=== PATIENT | male | born 1935 | race African-American/Black ===

== ENCOUNTER 2023-08-27 08:33 | Emergency (ER) | payer MEDICARE, BC ==
[2023-08-27 08:59] VITALS: TEMP 97
--- NOTE | 2023-08-27 09:16 | ERPHSYRPT ---
- History of Present Illness Time Seen by Provider: 08/27/23 08:40 Source: patient Exam Limitations: clinical condition Patient Subjective Stated Complaint: PT HERE FOR SEIZURE X3 AT [facility], PT HAS NOT HAD A SEIZURE FOR A YEAR Triage Nursing Assessment: PT ARRIVED PER AMBULANCE, ALERT, BUT CONFUSED, HE IS NORMALLY MORE ALERT PER DAUGHTER. PT REFUSES IV AT THIS TIME, DAUGHTER NOW AT BEDSIDE. MOVES ALL EXT WELL. Timing/Duration: today Severity: mild Associated Symptoms: denies symptoms Allergies/Adverse Reactions: No Known Drug Allergies Allergy (Unverified 08/27/23 10:41) Hx Influenza Vaccination/Date Given: Yes Hx Pneumococcal Vaccination/Date Given: Yes Immunizations Up to Date: Yes Travel Risk - International Travel Have you traveled outside of the country in past 3 weeks: No - Emerging Infectious Disease Are you exhibiting symptoms associated with any current EIDs: No - Review of Systems Eyes: No Symptoms Ears, Nose, & Throat: No Symptoms Respiratory: No Symptoms Cardiac: No Symptoms Abdominal/Gastrointestinal: No Symptoms Genitourinary Symptoms: No Symptoms Musculoskeletal: No Symptoms Neurological: Other (seizures) Endocrine: No Symptoms Hematologic/Lymphatic: No Symptoms Immunological/Allergic: No Symptoms - Past Medical History Pertinent Past Medical History: Yes Neurological History: Seizures Cardiac History: High Cholesterol, Hypertension - Past Surgical History Past Surgical History: (UNSURE) - Social History Smoking Status: Never smoker Exposure to second hand smoke: No Drug Use: none - Social Determinants of Health Will the patient participate in the screening: Unable to obtain - Nursing Vital Signs Nursing Vital Signs: Initial Vital Signs Temperature 97.0 F 08/27/23 08:56 Pulse Rate 65 08/27/23 08:56 Respiratory Rate 16 08/27/23 08:56 Blood Pressure 180/97 08/27/23 08:56 O2 Sat by Pulse Oximetry 97 08/27/23 08:56 Pain Scale Pain Intensity 0 - Physical Exam General Appearance: no apparent distress, other (patient appears to be post ictal ) Eye Exam: PERRL/EOMI Ears, Nose, Throat Exam: normal ENT inspection Neck Exam: normal inspection Respiratory Exam: normal breath sounds Cardiovascular Exam: regular rate/rhythm Gastrointestinal/Abdomen Exam: soft Neurologic Exam: other (patient is not cooperative at this time with exam ) Skin Exam: normal color SpO2: 97 Ordered Tests: Active Orders 24 hr Category Date Time Status Saline Lock ROUTINE Care 08/27/23 09:13 Completed CBC Stat Lab 08/27/23 09:20 Completed CMP Stat Lab 08/27/23 09:20 Completed UA W/RFX UR CULTURE Stat Lab 08/27/23 09:31 Completed Medication Summary Discontinued Medications Generic Name Dose Route Start Last Admin Trade Name Freq PRN Reason Stop Dose Admin Atropine Sulfate 0.5 mg 08/27/23 10:35 08/27/23 10:43 Atropine Sulfate 1 Mg/10 Ml Abboject IV 08/27/23 10:36 0.5 mg ONCE ONE Administration Atropine Sulfate Confirm 08/27/23 10:36 Atropine Sulfate 1 Mg/10 Ml Abboject Administered 08/27/23 10:37 Dose 1 mg .ROUTE .STK-MED ONE Fosphenytoin Sodium 1,500 mg/ 130 mls @ 250 mls/hr 08/27/23 10:43 08/27/23 11:00 Sodium Chloride IV 08/27/23 11:14 250 mls/hr STAT ONE Administration Lorazepam 1 mg 08/27/23 09:45 Lorazepam 2 Mg/1 Ml 2 Mg Vial IV 09/26/23 09:44 PRN PRN CIWA SCORE Lorazepam 1 mg 08/27/23 09:49 08/27/23 09:51 Lorazepam 2 Mg/1 Ml 2 Mg Vial IV 08/27/23 09:50 1 mg STAT ONE Administration Lorazepam Confirm 08/27/23 09:44 Lorazepam 2 Mg/1 Ml 2 Mg Vial Administered 08/27/23 09:45 Dose 2 mg .ROUTE .STK-MED ONE Lab/Rad Data: Laboratory Result Diagrams 08/27/23 09:20 08/27/23 09:20 Laboratory Results 08/27/23 08/27/23 08/27/23 Range/Units 09:31 09:20 09:20 WBC (4.23-9.07) x10^3/uL RBC (4.63-6.08) x10^6/uL Hgb (13.7-17.5) g/dL Hct (40.1-51.0) % MCV (79.0-92.2) fL MCH (25.7-32.2) pg MCHC (32.3-36.5) g/dL RDW (11.6-14.4) % Plt Count (163-337) x10^3/uL MPV (9.4-12.4) fL Sodium 142 (135-145) mmol/L Potassium 4.0 (3.5-5.1) mmol/L Chloride 106 (98-107) mmol/L Carbon Dioxide 25 (22-30) mmol/L Anion Gap 14.1 (5-15) MEQ/L BUN 31 H (9-20) mg/dL Creatinine 1.95 H (0.66-1.25) mg/dL Estimated GFR 32.3 ML/MIN Glucose 139 H (74-106) mg/dL Calcium 10.5 H (8.4-10.2) mg/dL Total Bilirubin 0.50 (0.2-1.3) mg/dL AST 26 (17-59) U/L ALT 14 (0-50) U/L Alkaline Phosphatase 222 H (38-126) U/L Serum Total Protein 8.1 (6.3-8.2) g/dL Albumin 4.3 (3.5-5.0) g/dL Urine Color Yellow (Yellow) Urine Appearance Clear (Clear) Urine pH 6.5 (4.6-8.0) Ur Specific [place] 1.010 (1.005-1.030) Urine Protein 100 A (Negative) Urine Glucose (UA) Negative (Negative) mg/dL Urine Ketones Negative (Negative) Urine Blood Trace (Negative) Urine Nitrite Negative (Negative) Urine Bilirubin Negative (Negative) Urine Urobilinogen 0.2 (0.2) mg/dL Ur Leukocyte Esterase Negative (Negative) U Hyaline Cast (Auto) NONE SEEN (0-2) /LPF Urine Microscopic RBC 0-2 (0-5) /HPF Urine Microscopic WBC 0-2 (0-5) /HPF Ur Epithelial Cells None Seen (None Seen) /HPF Urine Bacteria None Seen (None Seen) /HPF Urine Culture Reflexed NO (NO) Phenytoin 3.3 L (10-20) ug/mL 08/27/23 Range/Units 09:20 WBC 4.9 (4.23-9.07) x10^3/uL RBC 3.73 L (4.63-6.08) x10^6/uL Hgb 12.3 L (13.7-17.5) g/dL Hct 36.7 L (40.1-51.0) % MCV 98.4 H (79.0-92.2) fL MCH 33.0 H (25.7-32.2) pg MCHC 33.5 (32.3-36.5) g/dL RDW 12.3 (11.6-14.4) % Plt Count 178 (163-337) x10^3/uL MPV 10.0 (9.4-12.4) fL Sodium (135-145) mmol/L Potassium (3.5-5.1) mmol/L Chloride (98-107) mmol/L Carbon Dioxide (22-30) mmol/L Anion Gap (5-15) MEQ/L BUN (9-20) mg/dL Creatinine (0.66-1.25) mg/dL Estimated GFR ML/MIN Glucose (74-106) mg/dL Calcium (8.4-10.2) mg/dL Total Bilirubin (0.2-1.3) mg/dL AST (17-59) U/L ALT (0-50) U/L Alkaline Phosphatase (38-126) U/L Serum Total Protein (6.3-8.2) g/dL Albumin (3.5-5.0) g/dL Urine Color (Yellow) Urine Appearance (Clear) Urine pH (4.6-8.0) Ur Specific [place] (1.005-1.030) Urine Protein (Negative) Urine Glucose (UA) (Negative) mg/dL Urine Ketones (Negative) Urine Blood (Negative) Urine Nitrite (Negative) Urine Bilirubin (Negative) Urine Urobilinogen (0.2) mg/dL Ur Leukocyte Esterase (Negative) U Hyaline Cast (Auto) (0-2) /LPF Urine Microscopic RBC (0-5) /HPF Urine Microscopic WBC (0-5) /HPF Ur Epithelial Cells (None Seen) /HPF Urine Bacteria (None Seen) /HPF Urine Culture Reflexed (NO) Phenytoin (10-20) ug/mL - Progress Progress Note: patient was seen and evaluated initially he refused labs and head ct . upon the arrival of his family he was cooperative and then agreed to lab and other eval uation . his daugther requested some meds to calm him down. 1 mg of ativan was ordered and then the patient developed bradycardia. I spoke to the family and informed them of the need for transfer to [facility] or [facility] . they are agreeable at this time . Patients DNR status was confirmed . He will continue to be monitored and treated in the er and the patient will be treated accordingly 08/27/23 10:27 08/27/23 10:52 patient was monitored here in the department . his bradycardia was treated with atropine and his pulse improved. I spoke to the ed physician at [facility] Dr Rondon he was updated with the patients lab results and current vitals and treatments he will accept the patient as a transfer. patient and his family were updated and they have no further questions at this time. patients vitals are stable at this time Discussed with Dr.: Other (Dr rondon ) Will see patient in: ED Medical Desision Making - Discussion of managment Reviewed:: Need for additional workup Agreed on:: Treatment plan (decision was made to transfer the patient ) - Departure Departure Disposition: Transfer Clinical Impression: Seizure, Bradycardia, Renal insufficiency, mild Condition: Stable Critical Care Time: Yes Critical Care Time(excluding separately billable procedures): Critical 30-74 mins Referrals: KARTIK LADD DO [Primary Care Provider] - Follow up/PCP as directed
[2023-08-27 09:27] LABS: Hematocrit 36.7 % (40.1-51.0); Hemoglobin 12.3 g/dL (13.7-17.5); Mean Cell Volume 98.4 fL (79.0-92.2); Mean Corpuscular Hgb Concent. 33.5 g/dL (32.3-36.5); Platelet Count 178 x10^3/uL (163-337); Red Blood Count 3.73 x10^6/uL (4.63-6.08); Red Cell Distribution Width 12.3 % (11.6-14.4); White Blood Count 4.9 x10^3/uL (4.23-9.07)
[2023-08-27] MEDS ORDERED: Ativan 2 MG/1 ML VIAL ONE (09:44)
[2023-08-27] MEDS ORDERED: Ativan 2 MG/1 ML VIAL IV PRN (09:45)
[2023-08-27 09:46] LABS: ALBUMIN 4.3 g/dL (3.5-5.0); ANION GAP 14.1 MEQ/L (5-15); BILIRUBIN,TOTAL 0.5 mg/dL (0.2-1.3); Calcium 10.5 mg/dL (8.4-10.2); Creatinine 1 1.95 mg/dL (0.66-1.25); EST GLOMERULAR FILTRATION RATE 32.3 ML/MIN; Total Protein 8.1 g/dL (6.3-8.2)
[2023-08-27] MEDS: Ativan 2 MG/1 ML VIAL IV ONE (09:51)
[2023-08-27 09:54] LABS: Appearance Clear (Clear); Bacteria None Seen /HPF (None Seen); Bilirubin Negative (Negative); Blood Trace (Negative); Epithelial Cells None Seen /HPF (None Seen); Glucose, Urine Negative (Negative); Hyaline Casts NONE SEEN /LPF (0-2); Ketones Negative (Negative); Leukocyte Esterase Negative (Negative); Nitrite Negative (Negative); Ph 6.5 (4.6-8.0); Protein,Urine Dip 100 (Negative); RBC 0-2 /HPF (0-5); Urobilinogen 0.2 mg/dL (0.2); WBC 0-2 /HPF (0-5)
[2023-08-27 09:57] LABS: ADD URINE CULTURE? NO (NO)
[2023-08-27] MEDS ORDERED: ATROPINE SULFATE 1MG SYR ABBOJECT ONE (10:36)
[2023-08-27] MEDS: ATROPINE SULFATE 1MG SYR ABBOJECT IV ONE (10:43)
[2023-08-27] MEDS: SODIUM CHLORIDE 0.9% IV ONE (11:00)
[2023-08-27] MEDS: CEREBYX IV ONE (11:00)
[2023-08-27 11:19] VITALS: BP 149/77
[2023-08-27 11:26] VITALS: PULSE 60; RESP 16
[2023-08-27 19:17] VITALS: O2SAT 97
== END 2023-08-27 11:40 | disposition short-term general hospital (02) ==
LOC: ED 08:33
DX: G40.909 Epilepsy, unspecified, not intractable, without status epilepticus (principal); R00.1 Bradycardia, unspecified; N28.9 Disorder of kidney and ureter, unspecified; E78.5 Hyperlipidemia, unspecified; I10 Essential (primary) hypertension
CPT/HCPCS: 36000; 36415; 80053; 80185; 81001; 85027; 93005; 96365; 96374; 96375; 99285; 99291; J0461; J2060; Q2009

== ENCOUNTER 2023-09-11 10:13 | Observation (INO) | payer MEDICARE, BC ==
[2023-09-11] MEDS: Versed 2 MG/2 ML Injection IV ONE (10:51)
[2023-09-11 11:05] LABS: Absolute Neutrophil Ct (ANC) 2.89 x10^3/uL (1.78-5.38); BASOPHIL % 0.6 % (0.2-1.2); Basophil (Absolute #) 0.03 x10^3/uL (0.01-0.08); Eosinophil % 5.5 % (0.8-7.0); Hematocrit 38.3 % (40.1-51.0); Hemoglobin 12.4 g/dL (13.7-17.5); IMMATURE GRAN # 0.03 x10^3u/L (0.001-0.031); IMMATURE GRAN % 0.6 % (0.001-0.429); Lymphocyte (Absolute #) 1.52 x10^3/uL (1.32-3.57); Lymphocytes % 27.9 % (21.8-53.1); Mean Cell Volume 100.5 fL (79.0-92.2); Mean Corpuscular Hemoglobin 32.5 pg (25.7-32.2); Mean Corpuscular Hgb Concent. 32.4 g/dL (32.3-36.5); Mean Platelet Volume 10.4 fL (9.4-12.4); Monocyte (Absolute #) 0.68 x10^3/uL (0.30-0.82); Monocytes % 12.5 % (5.3-12.2); Neutrophil % 52.9 % (34.0-67.9); Platelet Count 184 x10^3/uL (163-337); Red Blood Count 3.81 x10^6/uL (4.63-6.08); Red Cell Distribution Width 12.3 % (11.6-14.4); White Blood Count 5.5 x10^3/uL (4.23-9.07)
[2023-09-11 11:22] LABS: ISTAT CREA 3.5 mg/dL (0.6-1.3); ISTAT K 3.9 mmol/L (3.5-4.9); ISTAT iCA 1.24 mmol/L (1.12-1.32)
[2023-09-11] MEDS: SODIUM CHLORIDE 0.9% IV ONE (11:40)
[2023-09-11] MEDS: DILANTIN IV ONE (11:40)
--- NOTE | 2023-09-11 11:46 | XRAY ---
Indication: Altered mental status. Seizure. Multiple contiguous axial images obtained through the head without contrast. Comparison: None Age-appropriate global atrophy, mild periventricular degenerative micro-ischemia bilaterally, small focus old infarct left frontal lobe, and tiny focus old infarct right cerebellum. No acute intracranial hemorrhage, abnormal extra-axial fluid collection, or mass effect. Fourth ventricle is midline without hydrocephalus. Bony calvarium intact. Visualized paranasal sinuses and mastoid air cells are clear. 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
--- NOTE | 2023-09-11 11:48 | XRAY ---
Indication: Altered mental status. Short of breath. Cough. Comparison: None Portable chest demonstrates mild left lung base subsegmental atelectasis/scarring. Remaining heart and lungs unremarkable. Bony thorax intact with osteopenia and mild degenerative changes.
[2023-09-11] MEDS ORDERED: Sodium Chloride 0.9% 500 ML 500 ML IV ONE (11:57)
[2023-09-11] MEDS: Sodium Chloride 0.9% 500 ML 500 ML IV ONE (12:01)
[2023-09-11] MEDS: Sodium Chloride 0.9% 1000 ML 1,000 ML IV SCH (13:12)
--- NOTE | 2023-09-11 13:17 | ERPHSYRPT ---
- History of Present Illness Time Seen by Provider: 09/11/23 10:15 Source: EMS, long term records Exam Limitations: clinical condition Patient Subjective Stated Complaint: C/O Seizures. Patient resides at a long- term care facility locally ([facility]). EMS called to residence for patient having active seizures today. Patient with a known history of seizures. EMS enroute to [facility] when patient began having a seizure in the ambulance and EMS unable to obtain IV access so they diverted to this ED. Triage Nursing Assessment: Patient arrived by ambulance. Patient given versed enroute and is not awake at this time. No SOB. Airway patent. No active seizing at this time. Skin tone normal. Seizure precautions initiated. Physician History: 88-year-old male with multiple medical problems including dementia, seizure disorder, diabetes mellitus, hypertension resident of long term is sent in ER with multiple seizures today with the last 1 and route to the hospital. Patient received intranasal Versed and improved. Patient is on phenytoin 100 mg. No fall or trauma reported although patient did have a fall couple of days ago and was evaluated at [facility] ER. Seizures are described as generalized stiffening. Patient is snoring on presentation. No recent fever chills or cough reported. No vomiting or diarrhea. Allergies/Adverse Reactions: No Known Drug Allergies Allergy (Unverified 08/27/23 10:41) Home Medications: Cholecalciferol (Vitamin D3) [Vitamin D] 400 unit PO DAILY 09/11/23 [History] Clopidogrel Bisulfate [PLAVIX Tablet] 75 mg PO DAILY 09/11/23 [History] Cyanocobalamin 100 Mcg [Vitamin B-12 100 Mcg] 1,000 mcg IM DIRECTIONS UNKNOWN 09/11/23 [History] Donepezil HCl [Aricept] 5 mg PO BID 09/11/23 [History] Ferrous Sulfate 325 mg [Feosol 325 mg] 325 mg PO DAILY 09/11/23 [History] Finasteride 5 mg [Proscar 5 MG] 5 mg PO DAILY 09/11/23 [History] Gabapentin [Neurontin] 600 mg PO BID 09/11/23 [History] Insulin Glargine [Lantus Insulin] 20 unit SQ HS 09/11/23 [History] Insulin Lispro [Humalog] See Protocol SQ ACHS 09/11/23 [History] Isosorbide Mononitrate 30 mg [Imdur 30 MG] 30 mg PO BID 09/11/23 [History] Melatonin/Pyridoxine [Melatonin 5 mg Tablet] 10 mg PO HS 09/11/23 [History] Pantoprazole Sodium 40 mg PO DAILY 09/11/23 [History] Phenytoin Sod Extended 100 mg* [Dilantin 100 MG] 100 mg PO BID 09/11/23 [History] Risperidone 1 mg [Risperdal 1 MG] 1 mg PO BID 09/11/23 [History] Terazosin HCl 5 mg PO HS 09/11/23 [History] gemfibroziL [Gemfibrozil] 600 mg PO BID 09/11/23 [History] Hx Influenza Vaccination/Date Given: Yes Hx Pneumococcal Vaccination/Date Given: Yes Travel Risk - International Travel Have you traveled outside of the country in past 3 weeks: No - Emerging Infectious Disease Are you exhibiting symptoms associated with any current EIDs: No - Review of Systems All Other Systems: Unable due to condition - Past Medical History Pertinent Past Medical History: Yes Neurological History: Dementia, Epilepsy, Seizures Cardiac History: High Cholesterol, Hypertension, Other Endocrine Medical History: Diabetes Type II History: Renal Disease Male Reproductive Disorders: Prostate Problems Other Medical History: ventricular tachycardia, CKD, hyperlipidemia, weakness, cognitive communication deficit, right wrist ganglion, BPH, bradycardia, repeated falls - Past Surgical History Past Surgical History: (UNSURE) Other Surgical History: Patient unable to give a surgical history at this time and surgical history not send with transfer paperwork from the long term. - Social History Smoking Status: Unknown if ever smoked Exposure to second hand smoke: No Drug Use: none - Social Determinants of Health Will the patient participate in the screening: Unable to obtain - Nursing Vital Signs Nursing Vital Signs: Initial Vital Signs Temperature 96.9 F 09/11/23 10:14 Pulse Rate 60 09/11/23 10:14 Respiratory Rate 15 09/11/23 10:14 Blood Pressure 100/60 09/11/23 10:14 O2 Sat by Pulse Oximetry 97 09/11/23 10:14 Pain Scale Pain Intensity 0 - Physical Exam General Appearance: other (Sleepy) Eye Exam: eyes nml inspection Ears, Nose, Throat Exam: normal ENT inspection, pharynx normal Neck Exam: normal inspection, non-tender, supple Respiratory Exam: normal breath sounds, lungs clear Cardiovascular Exam: normal heart sounds, bradycardia Gastrointestinal/Abdomen Exam: soft, normal bowel sounds, No tenderness Extremity Exam: normal inspection, pelvis stable Neurologic Exam: No motor deficits Skin Exam: normal color SpO2 Interpretation: O2 applied SpO2: 100 O2 Delivery: Nasal Cannula - Course EKG Interpreted by Me: RATE (62), Sinus Rhythm, NORMAL AXIS, prolonged QT interval, Other (Nonspecific T wave changes) Ordered Tests: Active Orders 24 hr Category Date Time Status Territory Supervisor STAT Care 09/11/23 10:36 Active EKG-ER Only STAT Care 09/11/23 10:31 Active IV Insertion STAT Care 09/11/23 10:31 Active NPO (ED) STAT Care 09/11/23 10:31 Active Oxygen-ED Only Nasal Cannula 2 lpm Care 09/11/23 10:31 Active POCT Glucose Check STAT Care 09/11/23 10:31 Active CHEST 1 VIEW (PORTABLE) Stat Exams 09/11/23 10:31 Completed HEAD WITHOUT CONTRAST [CT] Stat Exams 09/11/23 10:33 Completed CBC W DIFF Stat Lab 09/11/23 10:56 Completed Lactic Acid Stat Lab 09/11/23 10:26 Completed UA W/RFX UR CULTURE Stat Lab 09/11/23 10:26 Ordered Transfer Order Routine Transfer 09/11/23 Ordered Medication Summary Generic Name Dose Route Start Last Admin Trade Name Freq PRN Reason Stop Dose Admin Sodium Chloride 1,000 mls @ 125 mls/hr 09/11/23 12:00 Sodium Chloride 0.9% 1000 Ml IV 10/11/23 11:59 .Q8H YESENIA Discontinued Medications Generic Name Dose Route Start Last Admin Trade Name Freq PRN Reason Stop Dose Admin Phenytoin Sodium 1,000 mg/ 120 mls @ 240 mls/hr 09/11/23 10:31 09/11/23 11:40 Sodium Chloride IV 09/11/23 11:00 240 mls/hr STAT ONE Administration Sodium Chloride 500 mls @ 500 mls/hr 09/11/23 11:50 09/11/23 13:02 Sodium Chloride 0.9% 500 Ml IV 09/11/23 12:49 Infused .Q1H ONE Infusion Sodium Chloride Confirm 09/11/23 11:57 Sodium Chloride 0.9% 500 Ml Administered 09/11/23 11:58 Dose 500 mls @ ud IV .STK-MED ONE Midazolam HCl 2 mg 09/11/23 10:17 09/11/23 10:51 Midazolam Hcl 2 Mg/2 Ml Vial IV 09/11/23 10:18 Not Given 1XONLY ONE Lab/Rad Data: Laboratory Result Diagrams 09/11/23 10:56 09/11/23 10:56 Laboratory Results 09/11/23 09/11/23 09/11/23 Range/Units 10:56 10:56 10:26 WBC 5.5 (4.23-9.07) x10^3/uL RBC 3.81 L (4.63-6.08) x10^6/uL Hgb 12.4 L (13.7-17.5) g/dL Hct 38.3 L (40.1-51.0) % MCV 100.5 H (79.0-92.2) fL MCH 32.5 H (25.7-32.2) pg MCHC 32.4 (32.3-36.5) g/dL RDW 12.3 (11.6-14.4) % Plt Count 184 (163-337) x10^3/uL MPV 10.4 (9.4-12.4) fL Gran % 52.9 (34.0-67.9) % Immature Gran % (Auto) 0.6 H (0.001-0.429) % Nucleat RBC Rel Count 0.0 (0.00-0.2) % Eos # (Auto) 0.30 (0.04-0.54) x10^3/uL Immature Gran # (Auto) 0.03 (0.001-0.031) x10^3u/L Absolute Lymphs (auto) 1.52 (1.32-3.57) x10^3/uL Absolute Monos (auto) 0.68 (0.30-0.82) x10^3/uL Absolute Nucleated RBC 0.00 (0.00-0.012) x10^3u/L Lymphocytes % 27.9 (21.8-53.1) % Monocytes % 12.5 H (5.3-12.2) % Eosinophils % 5.5 (0.8-7.0) % Basophils % 0.6 (0.2-1.2) % Absolute Granulocytes 2.89 (1.78-5.38) x10^3/uL Basophils # 0.03 (0.01-0.08) x10^3/uL Sodium Direct 143 (138-146) mmol/L Potassium 3.9 (3.5-4.9) mmol/L Chloride 109 (98-109) mmol/L Carbon Dioxide 23 L (24-29) mmol/L Venous BUN 63 H (8-26) mg/dL Creatinine 3.5 H (0.6-1.3) mg/dL Glucose 167 H (70-105) mg/dL Lactic Acid 2.1 H (0.4-2.0) Ionized Calcium 1.24 (1.12-1.32) mmol/L - Progress Progress: improved Progress Note: 09/11/23 13:17 88-year-old with history of seizures is evaluated for multiple seizure prior to arrival with improvement after intranasal Versed. Patient is postictal on presentation, his oxygen was dropping in low 90s, placed on 2 L oxygen. He is given IV phenytoin and workup showed CT head without contrast with no acute intracranial findings but old changes. Chest x-ray negative. EKG is normal sinus rhythm with no acute ST elevations. Has normal white count, chemistries showed normal potassium and sodium but a creatinine of 3.5 with a baseline few days ago around 1.9. He is started on fluids. Patient has bradycardia while he is in sleep in 40s and 50s and also has history of getting severely bradycardic after receiving benzos. I have not given him any benzos in here. He had a brief episode of seizure which improved without medications. He does not have any further seizures after receiving phenytoin loading dose in here. Patient has history of seizure disorder and I have discussed with about keeping patient in here and also that we do not have neurology services in-house and she does not want to take him to [place] and would like to keep her in here. I have discussed with Dr. Somers hospitalist on-call, reviewed history, workup and agreed with admission. CODE STATUS is DNR. Discussed with Dr.: Other (Dr. Somers) Counseled pt/family regarding: lab results, diagnosis, rad results Medical Desision Making - Independent Historian Additional History obtained from: Spouse, Custodial nurse, Evaluation Specialist/EMT - External Record(s) Reviewed Records reviewed as a part of evaluation & management: EMS - Discussion of managment Care discussed with:: hospitalist Reviewed:: Test results Agreed on:: Treatment plan, place in obs Will see patient: in hospital - Diagnostic Testing Diagnostic test were ordered, analyzed, and reviewed by me: Yes Radiological Interpretation: Reviewed by me - Risk of complications The pt has a mod risk of morbidity or mortality based on: Need for prescription drug management The pt has a high risk of morbidity or mortality based on: Decision regarding hospitilization or escalation of hosp level of care - Departure Departure Disposition: Observation Clinical Impression: Recurrent seizures, Acute on chronic renal failure, Bradycardia Condition: Fair Critical Care Time: No Referrals: KARTIK LADD DO [Primary Care Provider] - Follow up/PCP as directed
[2023-09-11] MEDS ORDERED: Ativan 2 MG/1 ML VIAL IVIM PRN (14:30)
--- NOTE | 2023-09-11 14:32 | PCM.HP ---
<SANDHYA SHOEMAKER - Last Filed: 09/11/23 16:51> History of Present Illness - Chief Complaint Chief Complaint: Recurrent seizures Date: 09/11/23 History of Present Illness: is a 88 year old malepmhx of dementia, seizures, stroke, HTN, DM, HTN, CKD, BPH, and HLD who presented to ED via EMS from the [facility] after having multiple witnessed seizures. Recent ER visit 08/27/23 for multiple seizures after not having a seizure for two years. Patient was transferred at that time to [facility]. ER documentation reviewed, family was not wishing to transfer patient due to multiple admissions to [place]. Spoke with daughter Jennifer to obtain history as patient became belligerent once on the [facility] floor and unable to provide. Per daughter patient has been having multiple seizures and falls at the nursing facility resulting in multiple hospitalizations at both [facility] and [facility] over the past several weeks. Patient has a baseline of dementia but normally does not have behavioral issues. Staff unable to obtain IV access or provide medical treatment without restraining patient. Discussed lab findings and need for multi-specialty consults as well as one-on-one sitter which is not available at [facility]. Family is now agreeable for transfer - preferably [place] if able. In ED, patient bradycardic with HR in the 40s-50s and hypotensive at 100/60. EKG NS with no ST elevation/deviations. CT head non-acute with chronic findings with multifocal old infarcts. CXR with no acute findings. Labs remarkable for macrocytic, hyperchromic anemia with hgb at 12.4, creat at 3.5 (unknown baseline, last reading on 08/27/23 1.95), and lactic acid at 2.1. Patient was given versed, phenytoin, and 500ml fluid bolus. - Review of Systems All Other Systems: Unable due to condition Medications & Allergies Home Medications: Home Medication List Cholecalciferol (Vitamin D3) [Vitamin D] 400 unit PO DAILY 09/11/23 [History Confirmed 09/11/23] Clopidogrel Bisulfate [PLAVIX Tablet] 75 mg PO DAILY 09/11/23 [History Confirmed 09/11/23] Cyanocobalamin 100 Mcg [Vitamin B-12 100 Mcg] 1,000 mcg IM UD 09/11/23 [History Confirmed 09/11/23] Donepezil HCl [Aricept] 5 mg PO BID 09/11/23 [History Confirmed 09/11/23] Ferrous Sulfate 325 mg [Feosol 325 mg] 325 mg PO DAILY 09/11/23 [History Confirmed 09/11/23] Finasteride 5 mg [Proscar 5 MG] 5 mg PO DAILY 09/11/23 [History Confirmed 09/11/23] Gabapentin [Neurontin] 600 mg PO BID 09/11/23 [History Confirmed 09/11/23] Insulin Glargine [Lantus Insulin] 20 unit SQ HS 09/11/23 [History Confirmed 09/11/23] Insulin Lispro [Humalog] See Protocol SQ ACHS 09/11/23 [History Confirmed 09/11/23] Isosorbide Mononitrate 30 mg [Imdur 30 MG] 30 mg PO BID 09/11/23 [History Confirmed 09/11/23] Melatonin/Pyridoxine [Melatonin 5 mg Tablet] 10 mg PO HS 09/11/23 [History Confirmed 09/11/23] Pantoprazole Sodium 40 mg PO DAILY 09/11/23 [History Confirmed 09/11/23] Phenytoin Sod Extended 100 mg* [Dilantin 100 MG] 100 mg PO BID 09/11/23 [History Confirmed 09/11/23] Risperidone 1 mg [Risperdal 1 MG] 1 mg PO BID 09/11/23 [History Confirmed 09/11/23] Terazosin HCl 5 mg PO HS 09/11/23 [History Confirmed 09/11/23] gemfibroziL [Gemfibrozil] 600 mg PO BID 09/11/23 [History Confirmed 09/11/23] Allergies/Adverse Reactions: Allergies Allergy/AdvReac Type Severity Reaction Status Date / Time No Known Drug Allergies Allergy Verified 09/11/23 17:09 - Past Medical History Past Medical History: Yes Neurological History: Dementia, Epilepsy, Seizures Cardiac History: High Cholesterol, Hypertension, Other Endocrine Medical History: Diabetes Type II History: Renal Disease Male Reproductive Disorders: Prostate Problems Comment: ventricular tachycardia, CKD, hyperlipidemia, weakness, cognitive communication deficit, right wrist ganglion, BPH, bradycardia, repeated falls - Past Surgical History Past Surgical History: (UNSURE) Other Surgical History: Patient unable to give a surgical history at this time and surgical history not send with transfer paperwork from the halfway. - Social History Smoking Status: Unknown if ever smoked Exposure to second hand smoke: No Drug Use: none - Social Determinants of Health Will the patient participate in the screening: Unable to obtain - Physical Exam Vital Signs: Vital Signs - 24 hr Temp Pulse Resp BP BP Pulse Ox 09/11/23 13:46 62 16 129/63 09/11/23 13:32 59 L 12 135/54 09/11/23 13:21 100 09/11/23 13:17 57 L 18 148/67 09/11/23 13:01 61 19 129/55 09/11/23 12:46 55 L 15 121/55 09/11/23 12:30 56 L 20 95/50 97 09/11/23 12:16 47 L 3 L 99/62 96 09/11/23 12:01 65 18 145/80 96 09/11/23 11:46 69 13 113/73 100 09/11/23 11:45 67 28 H 98 09/11/23 11:40 57 L 14 98 09/11/23 11:31 51 L 15 98 09/11/23 11:05 45 L 14 107/63 98 09/11/23 11:04 49 L 12 98 09/11/23 11:00 49 L 11 L 98 09/11/23 10:50 51 L 15 09/11/23 10:40 45 L 19 99 09/11/23 10:30 52 L 14 94 L 09/11/23 10:20 54 L 14 99 09/11/23 10:16 60 12 98 09/11/23 10:14 96.9 F 60 15 100/60 97 General Appearance: anxiety Neurologic Exam: alert, disoriented, confusion, agitation, uncooperative Gastrointestinal/Abdomen Exam: distention Rectal Exam: deferred Back Exam: normal inspection Extremity Exam: normal inspection Skin Exam: normal color Results - Labs Lab/Micro Results: Lab Results-Last 24 Hours 09/11/23 09/11/23 09/11/23 Range/Units 10:26 10:56 10:56 WBC 5.5 (4.23-9.07) x10^3/uL RBC 3.81 L (4.63-6.08) x10^6/uL Hgb 12.4 L (13.7-17.5) g/dL Hct 38.3 L (40.1-51.0) % MCV 100.5 H (79.0-92.2) fL MCH 32.5 H (25.7-32.2) pg MCHC 32.4 (32.3-36.5) g/dL RDW 12.3 (11.6-14.4) % Plt Count 184 (163-337) x10^3/uL MPV 10.4 (9.4-12.4) fL Gran % 52.9 (34.0-67.9) % Immature Gran % (Auto) 0.6 H (0.001-0.429) % Nucleat RBC Rel Count 0.0 (0.00-0.2) % Eos # (Auto) 0.30 (0.04-0.54) x10^3/uL Immature Gran # (Auto) 0.03 (0.001-0.031) x10^3u/L Absolute Lymphs (auto) 1.52 (1.32-3.57) x10^3/uL Absolute Monos (auto) 0.68 (0.30-0.82) x10^3/uL Absolute Nucleated RBC 0.00 (0.00-0.012) x10^3u/L Lymphocytes % 27.9 (21.8-53.1) % Monocytes % 12.5 H (5.3-12.2) % Eosinophils % 5.5 (0.8-7.0) % Basophils % 0.6 (0.2-1.2) % Absolute Granulocytes 2.89 (1.78-5.38) x10^3/uL Basophils # 0.03 (0.01-0.08) x10^3/uL Sodium Direct 143 (138-146) mmol/L Potassium 3.9 (3.5-4.9) mmol/L Chloride 109 (98-109) mmol/L Carbon Dioxide 23 L (24-29) mmol/L Venous BUN 63 H (8-26) mg/dL Creatinine 3.5 H (0.6-1.3) mg/dL Glucose 167 H (70-105) mg/dL Lactic Acid 2.1 H (0.4-2.0) Ionized Calcium 1.24 (1.12-1.32) mmol/L Phenytoin (10-20) ug/mL 09/11/23 Range/Units 10:56 WBC (4.23-9.07) x10^3/uL RBC (4.63-6.08) x10^6/uL Hgb (13.7-17.5) g/dL Hct (40.1-51.0) % MCV (79.0-92.2) fL MCH (25.7-32.2) pg MCHC (32.3-36.5) g/dL RDW (11.6-14.4) % Plt Count (163-337) x10^3/uL MPV (9.4-12.4) fL Gran % (34.0-67.9) % Immature Gran % (Auto) (0.001-0.429) % Nucleat RBC Rel Count (0.00-0.2) % Eos # (Auto) (0.04-0.54) x10^3/uL Immature Gran # (Auto) (0.001-0.031) x10^3u/L Absolute Lymphs (auto) (1.32-3.57) x10^3/uL Absolute Monos (auto) (0.30-0.82) x10^3/uL Absolute Nucleated RBC (0.00-0.012) x10^3u/L Lymphocytes % (21.8-53.1) % Monocytes % (5.3-12.2) % Eosinophils % (0.8-7.0) % Basophils % (0.2-1.2) % Absolute Granulocytes (1.78-5.38) x10^3/uL Basophils # (0.01-0.08) x10^3/uL Sodium Direct (138-146) mmol/L Potassium (3.5-4.9) mmol/L Chloride (98-109) mmol/L Carbon Dioxide (24-29) mmol/L Venous BUN (8-26) mg/dL Creatinine (0.6-1.3) mg/dL Glucose (70-105) mg/dL Lactic Acid (0.4-2.0) Ionized Calcium (1.12-1.32) mmol/L Phenytoin (10-20) ug/mL - Radiology Impressions Radiology Exams & Impressions: Radiology Procedures Category Date Time Status CHEST 1 VIEW (PORTABLE) Stat Exams 09/11/23 10:31 Completed HEAD WITHOUT CONTRAST [CT] Stat Exams 09/11/23 10:33 Completed - Other Procedures and Tests Respiratory Therapy 09/11/23 14:22 Oxygen Nasal Cannula 2 lpm Respiratory Therapy Consult ONCE Assessment/Plan (1) Acute on chronic renal failure Current Visit: Yes Status: Acute Assessment & Plan: -Creat at 3.5 (unknown baseline, last reading on 08/27/23 1.95) -Renal dose medications -void NSAIDs/MARILY/ARB/diuretics -Gentle hydration -Monitor renal lytes daily -Daily weights/assess for fluid overload closely -Strict I&O Code(s): N17.9 - ACUTE KIDNEY FAILURE, UNSPECIFIED; N18.9 - CHRONIC KIDNEY DISEASE, UNSPECIFIED (2) Recurrent seizures Current Visit: Yes Status: Acute Assessment & Plan: -History of epilepsy - on phenytoin -check drug level on initial blood drawn -CT head non-acute with chronic findings with multifocal old infarcts -EKG NS- No ST elevation/deviation -LA elevated, trend -Check CK/Mg -Received phenytoin/versed in ED with improvement - continue home meds -Seizure precautions -Ativan PRN for seizure activity -Tele -Supplemental oxygen with spo2 goal >92% -Neuro checks -Gentle hydration Code(s): G40.909 - EPILEPSY, UNSP, NOT INTRACTABLE, WITHOUT STATUS EPILEPTICUS (3) Type 2 diabetes mellitus Current Visit: Yes Status: Acute Assessment & Plan: -accucheck -SSI/glargine -a1c (4) Dementia Current Visit: Yes Status: Acute Assessment & Plan: -Continue home med -aricept Code(s): F03.90 - UNSP DEMENTIA, UNSP SEVERITY, WITHOUT BEH/PSYCH/MOOD/ANX (5) HTN (hypertension) Current Visit: Yes Status: Acute Assessment & Plan: -stable continue home meds Code(s): I10 - ESSENTIAL (PRIMARY) HYPERTENSION (6) BPH (benign prostatic hyperplasia) Current Visit: Yes Status: Acute Assessment & Plan: -Continue proscar Code(s): N40.0 - BENIGN PROSTATIC HYPERPLASIA WITHOUT LOWER URINRY TRACT SYMP (7) Bradycardia Current Visit: Yes Status: Acute Assessment & Plan: -secondary to versed, improved Code(s): R00.1 - BRADYCARDIA, UNSPECIFIED Telemedicine Encounter - Telemedicine Encounter Telemedicine Encounter: The entirety of this encounter was performed via Telemedicine" <GARRETT JONES - Last Filed: 09/11/23 21:39> History of Present Illness - Chief Complaint History of Present Illness: is a 88 year old male. - Physical Exam Vital Signs: Vital Signs - 24 hr Temp Pulse Resp BP BP Pulse Ox 09/11/23 21:00 96.7 F 70 15 81/50 89 L 09/11/23 20:00 71 19 09/11/23 19:00 66 18 09/11/23 18:00 71 19 09/11/23 17:00 69 17 09/11/23 16:00 72 18 09/11/23 15:18 96.7 F 66 20 170/75 09/11/23 13:46 62 16 129/63 09/11/23 13:32 59 L 12 135/54 09/11/23 13:21 100 09/11/23 13:17 57 L 18 148/67 09/11/23 13:01 61 19 129/55 09/11/23 12:46 55 L 15 121/55 09/11/23 12:30 56 L 20 95/50 97 09/11/23 12:16 47 L 3 L 99/62 96 09/11/23 12:01 65 18 145/80 96 09/11/23 11:46 69 13 113/73 100 09/11/23 11:45 67 28 H 98 09/11/23 11:40 57 L 14 98 09/11/23 11:31 51 L 15 98 09/11/23 11:05 45 L 14 107/63 98 09/11/23 11:04 49 L 12 98 09/11/23 11:00 49 L 11 L 98 09/11/23 10:50 51 L 15 09/11/23 10:40 45 L 19 99 09/11/23 10:30 52 L 14 94 L 09/11/23 10:20 54 L 14 99 09/11/23 10:16 60 12 98 09/11/23 10:14 96.9 F 60 15 100/60 97 Results - Labs Lab/Micro Results: Lab Results-Last 24 Hours 09/11/23 09/11/23 09/11/23 Range/Units 10:26 10:56 10:56 WBC 5.5 (4.23-9.07) x10^3/uL RBC 3.81 L (4.63-6.08) x10^6/uL Hgb 12.4 L (13.7-17.5) g/dL Hct 38.3 L (40.1-51.0) % MCV 100.5 H (79.0-92.2) fL MCH 32.5 H (25.7-32.2) pg MCHC 32.4 (32.3-36.5) g/dL RDW 12.3 (11.6-14.4) % Plt Count 184 (163-337) x10^3/uL MPV 10.4 (9.4-12.4) fL Gran % 52.9 (34.0-67.9) % Immature Gran % (Auto) 0.6 H (0.001-0.429) % Nucleat RBC Rel Count 0.0 (0.00-0.2) % Eos # (Auto) 0.30 (0.04-0.54) x10^3/uL Immature Gran # (Auto) 0.03 (0.001-0.031) x10^3u/L Absolute Lymphs (auto) 1.52 (1.32-3.57) x10^3/uL Absolute Monos (auto) 0.68 (0.30-0.82) x10^3/uL Absolute Nucleated RBC 0.00 (0.00-0.012) x10^3u/L Lymphocytes % 27.9 (21.8-53.1) % Monocytes % 12.5 H (5.3-12.2) % Eosinophils % 5.5 (0.8-7.0) % Basophils % 0.6 (0.2-1.2) % Absolute Granulocytes 2.89 (1.78-5.38) x10^3/uL Basophils # 0.03 (0.01-0.08) x10^3/uL Sodium Direct 143 (138-146) mmol/L Potassium 3.9 (3.5-4.9) mmol/L Chloride 109 (98-109) mmol/L Carbon Dioxide 23 L (24-29) mmol/L Venous BUN 63 H (8-26) mg/dL Creatinine 3.5 H (0.6-1.3) mg/dL Glucose 167 H (70-105) mg/dL POC Glucometer (74 to 106) mg/dL Hemoglobin A1c (4.5-6.0) % Lactic Acid 2.1 H (0.4-2.0) Ionized Calcium 1.24 (1.12-1.32) mmol/L Magnesium (1.6-2.3) mg/dL Creatine Kinase (55-170) U/L Urine Color (Yellow) Urine Appearance (Clear) Urine pH (4.6-8.0) Ur Specific [place] (1.005-1.030) Urine Protein (Negative) Urine Glucose (UA) (Negative) mg/dL Urine Ketones (Negative) Urine Blood (Negative) Urine Nitrite (Negative) Urine Bilirubin (Negative) Urine Urobilinogen (0.2) mg/dL Ur Leukocyte Esterase (Negative) U Hyaline Cast (Auto) (0-2) /LPF Urine Microscopic RBC (0-5) /HPF Urine Microscopic WBC (0-5) /HPF Ur Epithelial Cells (None Seen) /HPF Urine Bacteria (None Seen) /HPF Urine Culture Reflexed (NO) Phenytoin (10-20) ug/mL 09/11/23 09/11/23 09/11/23 Range/Units 10:56 10:56 10:56 WBC (4.23-9.07) x10^3/uL RBC (4.63-6.08) x10^6/uL Hgb (13.7-17.5) g/dL Hct (40.1-51.0) % MCV (79.0-92.2) fL MCH (25.7-32.2) pg MCHC (32.3-36.5) g/dL RDW (11.6-14.4) % Plt Count (163-337) x10^3/uL MPV (9.4-12.4) fL Gran % (34.0-67.9) % Immature Gran % (Auto) (0.001-0.429) % Nucleat RBC Rel Count (0.00-0.2) % Eos # (Auto) (0.04-0.54) x10^3/uL Immature Gran # (Auto) (0.001-0.031) x10^3u/L Absolute Lymphs (auto) (1.32-3.57) x10^3/uL Absolute Monos (auto) (0.30-0.82) x10^3/uL Absolute Nucleated RBC (0.00-0.012) x10^3u/L Lymphocytes % (21.8-53.1) % Monocytes % (5.3-12.2) % Eosinophils % (0.8-7.0) % Basophils % (0.2-1.2) % Absolute Granulocytes (1.78-5.38) x10^3/uL Basophils # (0.01-0.08) x10^3/uL Sodium Direct (138-146) mmol/L Potassium (3.5-4.9) mmol/L Chloride (98-109) mmol/L Carbon Dioxide (24-29) mmol/L Venous BUN (8-26) mg/dL Creatinine (0.6-1.3) mg/dL Glucose (70-105) mg/dL POC Glucometer (74 to 106) mg/dL Hemoglobin A1c 5.76 (4.5-6.0) % Lactic Acid (0.4-2.0) Ionized Calcium (1.12-1.32) mmol/L Magnesium 2.0 (1.6-2.3) mg/dL Creatine Kinase 553 H (55-170) U/L Urine Color (Yellow) Urine Appearance (Clear) Urine pH (4.6-8.0) Ur Specific [place] (1.005-1.030) Urine Protein (Negative) Urine Glucose (UA) (Negative) mg/dL Urine Ketones (Negative) Urine Blood (Negative) Urine Nitrite (Negative) Urine Bilirubin (Negative) Urine Urobilinogen (0.2) mg/dL Ur Leukocyte Esterase (Negative) U Hyaline Cast (Auto) (0-2) /LPF Urine Microscopic RBC (0-5) /HPF Urine Microscopic WBC (0-5) /HPF Ur Epithelial Cells (None Seen) /HPF Urine Bacteria (None Seen) /HPF Urine Culture Reflexed (NO) Phenytoin (10-20) ug/mL 09/11/23 09/11/23 Range/Units 15:39 16:19 WBC (4.23-9.07) x10^3/uL RBC (4.63-6.08) x10^6/uL Hgb (13.7-17.5) g/dL Hct (40.1-51.0) % MCV (79.0-92.2) fL MCH (25.7-32.2) pg MCHC (32.3-36.5) g/dL RDW (11.6-14.4) % Plt Count (163-337) x10^3/uL MPV (9.4-12.4) fL Gran % (34.0-67.9) % Immature Gran % (Auto) (0.001-0.429) % Nucleat RBC Rel Count (0.00-0.2) % Eos # (Auto) (0.04-0.54) x10^3/uL Immature Gran # (Auto) (0.001-0.031) x10^3u/L Absolute Lymphs (auto) (1.32-3.57) x10^3/uL Absolute Monos (auto) (0.30-0.82) x10^3/uL Absolute Nucleated RBC (0.00-0.012) x10^3u/L Lymphocytes % (21.8-53.1) % Monocytes % (5.3-12.2) % Eosinophils % (0.8-7.0) % Basophils % (0.2-1.2) % Absolute Granulocytes (1.78-5.38) x10^3/uL Basophils # (0.01-0.08) x10^3/uL Sodium Direct (138-146) mmol/L Potassium (3.5-4.9) mmol/L Chloride (98-109) mmol/L Carbon Dioxide (24-29) mmol/L Venous BUN (8-26) mg/dL Creatinine (0.6-1.3) mg/dL Glucose (70-105) mg/dL POC Glucometer 212 H (74 to 106) mg/dL Hemoglobin A1c (4.5-6.0) % Lactic Acid (0.4-2.0) Ionized Calcium (1.12-1.32) mmol/L Magnesium (1.6-2.3) mg/dL Creatine Kinase (55-170) U/L Urine Color Yellow (Yellow) Urine Appearance Clear (Clear) Urine pH 5.5 (4.6-8.0) Ur Specific [place] 1.020 (1.005-1.030) Urine Protein 300 A (Negative) Urine Glucose (UA) Negative (Negative) mg/dL Urine Ketones Trace A (Negative) Urine Blood Trace (Negative) Urine Nitrite Negative (Negative) Urine Bilirubin Negative (Negative) Urine Urobilinogen 1.0 A (0.2) mg/dL Ur Leukocyte Esterase Trace A (Negative) U Hyaline Cast (Auto) 11-20 (0-2) /LPF Urine Microscopic RBC 0-2 (0-5) /HPF Urine Microscopic WBC 3-5 (0-5) /HPF Ur Epithelial Cells Few (None Seen) /HPF Urine Bacteria None Seen (None Seen) /HPF Urine Culture Reflexed NO (NO) Phenytoin (10-20) ug/mL - Radiology Impressions Radiology Exams & Impressions: Radiology Procedures Category Date Time Status CHEST 1 VIEW (PORTABLE) Stat Exams 09/11/23 10:31 Completed HEAD WITHOUT CONTRAST [CT] Stat Exams 09/11/23 10:33 Completed - Other Procedures and Tests Respiratory Therapy 09/11/23 14:22 Oxygen Nasal Cannula 2 lpm 09/11/23 14:44 EKG REPEAT IN AM Telemedicine Encounter - Telemedicine Encounter Telemedicine Encounter: The entirety of this encounter was performed via Telemedicine" CASTRO Encounter - CASTRO Encounter Attestation CASTRO Encounter Attestation: "IhavepersonallyseenandexVALDEZ Cruz andhavediscussed pertinent aspects of their care with Sandhya Cruz agree with the history, physical exam (any modifications based on my personal exam will be noted below), assessment, and plan as outlined in original note. Please see immediately below for my summary of findings and additional assessment and plan along with any meaningful corrections/explanations to the Subjective/Objective portions of the CASTRO note will be noted." My portion of the encounter took place via telemedicine. -Patient with history of dementia, seizure disorder, halfway resident presenting with recurrent seizures and agitation requiring 4 point restraints and brenda morrison. Also has OLVIN. Likely metabolic encephalopathy in the setting of dementia. Since we do not have security at night or extra personnel to serve as a sitter for the patient, he will be transferred to [facility] for further management.
[2023-09-11] MEDS ORDERED: Ativan 2 MG/1 ML VIAL ONE (14:34)
[2023-09-11] MEDS: Ativan 2 MG/1 ML VIAL IM PRN (14:36)
[2023-09-11] MEDS ORDERED: HUMALOG SQ PRN (14:44)
[2023-09-11] MEDS ORDERED: TYLENOL 325 MG PO PRN (14:44)
[2023-09-11] MEDS ORDERED: Zofran 4 MG/2 ML VIAL IV PRN (14:44)
[2023-09-11 16:11] LABS: Appearance Clear (Clear); Bacteria None Seen /HPF (None Seen); Bilirubin Negative (Negative); Blood Trace (Negative); Epithelial Cells Few /HPF (None Seen); Glucose, Urine Negative (Negative); Ketones Trace (Negative); Leukocyte Esterase Trace (Negative); Nitrite Negative (Negative); Ph 5.5 (4.6-8.0); Protein,Urine Dip 300 (Negative); RBC 0-2 /HPF (0-5)
[2023-09-11] MEDS: Geodon 20 MG INJ IM ONE (16:11)
[2023-09-11 16:12] LABS: ADD URINE CULTURE? NO (NO)
[2023-09-11] MEDS: Sterile H2O 10 ml IJ ONE (16:12)
--- NOTE | 2023-09-11 16:47 | PCM.SSS ---
History of Present Illness - Chief Complaint Chief Complaint: Recurrent seizures Date: 09/11/23 History of Present Illness: is a 88 year old malepmhx of dementia, seizures, stroke, HTN, DM, HTN, CKD, BPH, and HLD who presented to ED via EMS from the [facility] after having multiple witnessed seizures. Recent ER visit 08/27/23 for multiple seizures after not having a seizure for two years. Patient was transferred at that time to [facility]. ER documentation reviewed, family was not wishing to transfer patient due to multiple admissions to [facility]. Spoke with daughter Jennifer to obtain history as patient became belligerent once on the med surg floor and unable to provide. Per daughter patient has been having multiple seizures and falls at the nursing facility resulting in multiple hospitalizations at both [facility] and [facility] over the past several weeks. Patient has a baseline of dementia but normally does not have behavioral issues. Staff unable to obtain IV access or provide medical treatment without restraining patient. Discussed lab findings and need for multi-specialty consults as well as one-on-one sitter which is not available at [facility]. Family is now agreeable for transfer - preferably [facility] if able. In ED, patient bradycardic with HR in the 40s-50s and hypotensive at 100/60. EKG NS with no ST elevation/deviations. CT head non-acute with chronic findings with multifocal old infarcts. CXR with no acute findings. Labs remarkable for macrocytic, hyperchromic anemia with hgb at 12.4, creat at 3.5 (unknown baselin e, last reading on 08/27/23 1.95), and lactic acid at 2.1. Patient was given versed, phenytoin, and 500ml fluid bolus. - Review of Systems All Other Systems: Unable due to condition Medications & Allergies Home Medications: Home Medication List Cholecalciferol (Vitamin D3) [Vitamin D] 400 unit PO DAILY 09/11/23 [History Confirmed 09/11/23] Clopidogrel Bisulfate [PLAVIX Tablet] 75 mg PO DAILY 09/11/23 [History Confirmed 09/11/23] Cyanocobalamin 100 Mcg [Vitamin B-12 100 Mcg] 1,000 mcg IM DIRECTIONS UNK NOWN 09/11/23 [History Confirmed 09/11/23] Donepezil HCl [Aricept] 5 mg PO BID 09/11/23 [History Confirmed 09/11/23] Ferrous Sulfate 325 mg [Feosol 325 mg] 325 mg PO DAILY 09/11/23 [History Confirmed 09/11/23] Finasteride 5 mg [Proscar 5 MG] 5 mg PO DAILY 09/11/23 [History Confirmed 09/11/23] Gabapentin [Neurontin] 600 mg PO BID 09/11/23 [History Confirmed 09/11/23] Insulin Glargine [Lantus Insulin] 20 unit SQ HS 09/11/23 [History Confirmed 09/11/23] Insulin Lispro [Humalog] See Protocol SQ ACHS 09/11/23 [History Confirmed 09/11/23] Isosorbide Mononitrate 30 mg [Imdur 30 MG] 30 mg PO BID 09/11/23 [History Confirmed 09/11/23] Melatonin/Pyridoxine [Melatonin 5 mg Tablet] 10 mg PO HS 09/11/23 [History Confirmed 09/11/23] Pantoprazole Sodium 40 mg PO DAILY 09/11/23 [History Confirmed 09/11/23] Phenytoin Sod Extended 100 mg* [Dilantin 100 MG] 100 mg PO BID 09/11/23 [Hi story Confirmed 09/11/23] Risperidone 1 mg [Risperdal 1 MG] 1 mg PO BID 09/11/23 [History Confirmed 09/11/23] Terazosin HCl 5 mg PO HS 09/11/23 [History Confirmed 09/11/23] gemfibroziL [Gemfibrozil] 600 mg PO BID 09/11/23 [History Confirmed 09/11/23] Allergies/Adverse Reactions: Allergies Allergy/AdvReac Type Severity Reaction Status Date / Time No Known Drug Allergies Allergy Unverified 08/27/23 10:41 - Past Medical History Past Medical History: Yes Neurological History: Dementia, Epilepsy, Seizures Cardiac History: High Cholesterol, Hypertension, Other Endocrine Medical History: Diabetes Type II History: Renal Disease Male Reproductive Disorders: Prostate Problems Comment: ventricular tachycardia, CKD, hyperlipidemia, weakness, cognitive communication deficit, right wrist ganglion, BPH, bradycardia, repeated falls - Past Surgical History Past Surgical History: (UNSURE) Other Surgical History: Patient unable to give a surgical history at this time and surgical history not send with transfer paperwork from the [place] [facility]. - Social History Smoking Status: Unknown if ever smoked Exposure to second hand smoke: No Drug Use: none - Social Determinants of Health Will the patient participate in the screening: Unable to obtain - Physical Exam Vital Signs: Vital Signs - 24 hr Temp Pulse Resp BP BP Pulse Ox 09/11/23 15:18 96.7 F 66 20 170/75 09/11/23 13:46 62 16 129/63 09/11/23 13:32 59 L 12 135/54 09/11/23 13:21 100 09/11/23 13:17 57 L 18 148/67 09/11/23 13:01 61 19 129/55 09/11/23 12:46 55 L 15 121/55 09/11/23 12:30 56 L 20 95/50 97 09/11/23 12:16 47 L 3 L 99/62 96 09/11/23 12:01 65 18 145/80 96 09/11/23 11:46 69 13 113/73 100 09/11/23 11:45 67 28 H 98 09/11/23 11:40 57 L 14 98 09/11/23 11:31 51 L 15 98 09/11/23 11:05 45 L 14 107/63 98 09/11/23 11:04 49 L 12 98 09/11/23 11:00 49 L 11 L 98 09/11/23 10:50 51 L 15 09/11/23 10:40 45 L 19 99 09/11/23 10:30 52 L 14 94 L 09/11/23 10:20 54 L 14 99 09/11/23 10:16 60 12 98 09/11/23 10:14 96.9 F 60 15 100/60 97 General Appearance: anxiety Neurologic Exam: alert, disoriented, confusion, agitation, uncooperative Gastrointestinal/Abdomen Exam: distention Extremity Exam: normal inspection Skin Exam: normal color Results - Labs Lab/Micro Results: Lab Results-Last 24 Hours 09/11/23 09/11/23 09/11/23 Range/Units 10:26 10:56 10:56 WBC 5.5 (4.23-9.07) x10^3/uL RBC 3.81 L (4.63-6.08) x10^6/uL Hgb 12.4 L (13.7-17.5) g/dL Hct 38.3 L (40.1-51.0) % MCV 100.5 H (79.0-92.2) fL MCH 32.5 H (25.7-32.2) pg MCHC 32.4 (32.3-36.5) g/dL RDW 12.3 (11.6-14.4) % Plt Count 184 (163-337) x10^3/uL MPV 10.4 (9.4-12.4) fL Gran % 52.9 (34.0-67.9) % Immature Gran % (Auto) 0.6 H (0.001-0.429) % Nucleat RBC Rel Count 0.0 (0.00-0.2) % Eos # (Auto) 0.30 (0.04-0.54) x10^3/uL Immature Gran # (Auto) 0.03 (0.001-0.031) x10^3u/L Absolute Lymphs (auto) 1.52 (1.32-3.57) x10^3/uL Absolute Monos (auto) 0.68 (0.30-0.82) x10^3/uL Absolute Nucleated RBC 0.00 (0.00-0.012) x10^3u/L Lymphocytes % 27.9 (21.8-53.1) % Monocytes % 12.5 H (5.3-12.2) % Eosinophils % 5.5 (0.8-7.0) % Basophils % 0.6 (0.2-1.2) % Absolute Granulocytes 2.89 (1.78-5.38) x10^3/uL Basophils # 0.03 (0.01-0.08) x10^3/uL Sodium Direct 143 (138-146) mmol/L Potassium 3.9 (3.5-4.9) mmol/L Chloride 109 (98-109) mmol/L Carbon Dioxide 23 L (24-29) mmol/L Venous BUN 63 H (8-26) mg/dL Creatinine 3.5 H (0.6-1.3) mg/dL Glucose 167 H (70-105) mg/dL POC Glucometer (74 to 106) mg/dL Lactic Acid 2.1 H (0.4-2.0) Ionized Calcium 1.24 (1.12-1.32) mmol/L Magnesium (1.6-2.3) mg/dL Creatine Kinase (55-170) U/L Urine Color (Yellow) Urine Appearance (Clear) Urine pH (4.6-8.0) Ur Specific [place] (1.005-1.030) Urine Protein (Negative) Urine Glucose (UA) (Negative) mg/dL Urine Ketones (Negative) Urine Blood (Negative) Urine Nitrite (Negative) Urine Bilirubin (Negative) Urine Urobilinogen (0.2) mg/dL Ur Leukocyte Esterase (Negative) U Hyaline Cast (Auto) (0-2) /LPF Urine Microscopic RBC (0-5) /HPF Urine Microscopic WBC (0-5) /HPF Ur Epithelial Cells (None Seen) /HPF Urine Bacteria (None Seen) /HPF Urine Culture Reflexed (NO) Phenytoin (10-20) ug/mL 09/11/23 09/11/23 09/11/23 Range/Units 10:56 10:56 15:39 WBC (4.23-9.07) x10^3/uL RBC (4.63-6.08) x10^6/uL Hgb (13.7-17.5) g/dL Hct (40.1-51.0) % MCV (79.0-92.2) fL MCH (25.7-32.2) pg MCHC (32.3-36.5) g/dL RDW (11.6-14.4) % Plt Count (163-337) x10^3/uL MPV (9.4-12.4) fL Gran % (34.0-67.9) % Immature Gran % (Auto) (0.001-0.429) % Nucleat RBC Rel Count (0.00-0.2) % Eos # (Auto) (0.04-0.54) x10^3/uL Immature Gran # (Auto) (0.001-0.031) x10^3u/L Absolute Lymphs (auto) (1.32-3.57) x10^3/uL Absolute Monos (auto) (0.30-0.82) x10^3/uL Absolute Nucleated RBC (0.00-0.012) x10^3u/L Lymphocytes % (21.8-53.1) % Monocytes % (5.3-12.2) % Eosinophils % (0.8-7.0) % Basophils % (0.2-1.2) % Absolute Granulocytes (1.78-5.38) x10^3/uL Basophils # (0.01-0.08) x10^3/uL Sodium Direct (138-146) mmol/L Potassium (3.5-4.9) mmol/L Chloride (98-109) mmol/L Carbon Dioxide (24-29) mmol/L Venous BUN (8-26) mg/dL Creatinine (0.6-1.3) mg/dL Glucose (70-105) mg/dL POC Glucometer (74 to 106) mg/dL Lactic Acid (0.4-2.0) Ionized Calcium (1.12-1.32) mmol/L Magnesium 2.0 (1.6-2.3) mg/dL Creatine Kinase 553 H (55-170) U/L Urine Color Yellow (Yellow) Urine Appearance Clear (Clear) Urine pH 5.5 (4.6-8.0) Ur Specific [place] 1.020 (1.005-1.030) Urine Protein 300 A (Negative) Urine Glucose (UA) Negative (Negative) mg/dL Urine Ketones Trace A (Negative) Urine Blood Trace (Negative) Urine Nitrite Negative (Negative) Urine Bilirubin Negative (Negative) Urine Urobilinogen 1.0 A (0.2) mg/dL Ur Leukocyte Esterase Trace A (Negative) U Hyaline Cast (Auto) 11-20 (0-2) /LPF Urine Microscopic RBC 0-2 (0-5) /HPF Urine Microscopic WBC 3-5 (0-5) /HPF Ur Epithelial Cells Few (None Seen) /HPF Urine Bacteria None Seen (None Seen) /HPF Urine Culture Reflexed NO (NO) Phenytoin (10-20) ug/mL 09/11/23 Range/Units 16:19 WBC (4.23-9.07) x10^3/uL RBC (4.63-6.08) x10^6/uL Hgb (13.7-17.5) g/dL Hct (40.1-51.0) % MCV (79.0-92.2) fL MCH (25.7-32.2) pg MCHC (32.3-36.5) g/dL RDW (11.6-14.4) % Plt Count (163-337) x10^3/uL MPV (9.4-12.4) fL Gran % (34.0-67.9) % Immature Gran % (Auto) (0.001-0.429) % Nucleat RBC Rel Count (0.00-0.2) % Eos # (Auto) (0.04-0.54) x10^3/uL Immature Gran # (Auto) (0.001-0.031) x10^3u/L Absolute Lymphs (auto) (1.32-3.57) x10^3/uL Absolute Monos (auto) (0.30-0.82) x10^3/uL Absolute Nucleated RBC (0.00-0.012) x10^3u/L Lymphocytes % (21.8-53.1) % Monocytes % (5.3-12.2) % Eosinophils % (0.8-7.0) % Basophils % (0.2-1.2) % Absolute Granulocytes (1.78-5.38) x10^3/uL Basophils # (0.01-0.08) x10^3/uL Sodium Direct (138-146) mmol/L Potassium (3.5-4.9) mmol/L Chloride (98-109) mmol/L Carbon Dioxide (24-29) mmol/L Venous BUN (8-26) mg/dL Creatinine (0.6-1.3) mg/dL Glucose (70-105) mg/dL POC Glucometer 212 H (74 to 106) mg/dL Lactic Acid (0.4-2.0) Ionized Calcium (1.12-1.32) mmol/L Magnesium (1.6-2.3) mg/dL Creatine Kinase (55-170) U/L Urine Color (Yellow) Urine Appearance (Clear) Urine pH (4.6-8.0) Ur Specific [place] (1.005-1.030) Urine Protein (Negative) Urine Glucose (UA) (Negative) mg/dL Urine Ketones (Negative) Urine Blood (Negative) Urine Nitrite (Negative) Urine Bilirubin (Negative) Urine Urobilinogen (0.2) mg/dL Ur Leukocyte Esterase (Negative) U Hyaline Cast (Auto) (0-2) /LPF Urine Microscopic RBC (0-5) /HPF Urine Microscopic WBC (0-5) /HPF Ur Epithelial Cells (None Seen) /HPF Urine Bacteria (None Seen) /HPF Urine Culture Reflexed (NO) Phenytoin (10-20) ug/mL - Radiology Impressions Radiology Exams & Impressions: Radiology Procedures Category Date Time Status CHEST 1 VIEW (PORTABLE) Stat Exams 09/11/23 10:31 Completed HEAD WITHOUT CONTRAST [CT] Stat Exams 09/11/23 10:33 Completed - Other Procedures and Tests Respiratory Therapy 09/11/23 14:22 Oxygen Nasal Cannula 2 lpm 09/11/23 14:44 EKG REPEAT IN AM Assessment/Plan (1) Acute on chronic renal failure Current Visit: Yes Status: Acute Assessment & Plan: -Creat at 3.5 (unknown baseline, last reading on 08/27/23 1.95) -Renal dose medications -void NSAIDs/MARILY/ARB/diuretics -Gentle hydration -Monitor renal lytes daily -Daily weights/assess for fluid overload closely -Strict I&O Code(s): N17.9 - ACUTE KIDNEY FAILURE, UNSPECIFIED; N18.9 - CHRONIC KIDNEY DISEA SE, UNSPECIFIED (2) Recurrent seizures Current Visit: Yes Status: Acute Assessment & Plan: -History of epilepsy - on phenytoin -check drug level on initial blood drawn -CT head non-acute with chronic findings with multifocal old infarcts -EKG NS- No ST elevation/deviation -LA elevated, trend -Check CK/Mg -Received phenytoin/versed in ED with improvement - continue home meds -Seizure precautions -Ativan PRN for seizure activity -Tele -Supplemental oxygen with spo2 goal >92% -Neuro checks -Gentle hydration Code(s): G40.909 - EPILEPSY, UNSP, NOT INTRACTABLE, WITHOUT STATUS EPILEPTICUS (3) Type 2 diabetes mellitus Current Visit: Yes Status: Acute Assessment & Plan: -accucheck -SSI/glargine -a1c (4) Dementia Current Visit: Yes Status: Acute Assessment & Plan: -Continue home med -aricept Code(s): F03.90 - UNSP DEMENTIA, UNSP SEVERITY, WITHOUT BEH/PSYCH/MOOD/ANX (5) HTN (hypertension) Current Visit: Yes Status: Acute Assessment & Plan: -stable continue home meds Code(s): I10 - ESSENTIAL (PRIMARY) HYPERTENSION (6) BPH (benign prostatic hyperplasia) Current Visit: Yes Status: Acute Assessment & Plan: -Continue proscar Code(s): N40.0 - BENIGN PROSTATIC HYPERPLASIA WITHOUT LOWER URINRY TRACT SYMP (7) Bradycardia Current Visit: Yes Status: Acute Assessment & Plan: -secondary to versed, improved Code(s): R00.1 - BRADYCARDIA, UNSPECIFIED Code(s): N17.9 - ACUTE KIDNEY FAILURE, UNSPECIFIED; N18.9 - CHRONIC KIDNEY DISEASE, UNSPECIFIED (2) Recurrent seizures Current Visit: Yes Status: Acute Code(s): G40.909 - EPILEPSY, UNSP, NOT INTRACTABLE, WITHOUT STATUS EPILEPTICUS (3) Type 2 diabetes mellitus Current Visit: Yes Status: Acute (4) Dementia Current Visit: Yes Status: Acute Code(s): F03.90 - UNSP DEMENTIA, UNSP SEVERITY, WITHOUT BEH/PSYCH/MOOD/ANX (5) HTN (hypertension) Current Visit: Yes Status: Acute Code(s): I10 - ESSENTIAL (PRIMARY) HYPERTENSION (6) BPH (benign prostatic hyperplasia) Current Visit: Yes Status: Acute Code(s): N40.0 - BENIGN PROSTATIC HYPERPLASIA WITHOUT LOWER URINRY TRACT SYMP (7) Bradycardia Current Visit: Yes Status: Acute Code(s): R00.1 - BRADYCARDIA, UNSPECIFIED Hospital Summary - Hospital Course Hospital Course: is a 88 year old malepmhx of dementia, seizures, stroke, HTN, DM, HTN, CKD, BPH, and HLD who presented to ED via EMS from the [facility] after having multiple witnessed seizures. Recent ER visit 08/27/23 for multiple seizures after not having a seizure for two years. Patient was transferred at that time to [facility]. ER documentation reviewed, family was not wishing to transfer patient due to multiple admissions to [facility]. Spoke with daughter Jennifer to obtain history as patient became belligerent once on the med surg floor and unable to provide. Per daughter patient has been having multiple seizures and falls at the nursing facility resulting in multiple hospitalizations at both [facility] and [facility] over the past several weeks. Patient has a baseline of dementia but normally does not have behavioral issues. Staff unable to obtain IV access or provide medical treatment without restraining patient. Discussed lab findings and need for multi-specialty consults as well as one-on-one sitter which is not available at [facility]. Family is now agreeable for transfer - preferably [place] if able. In ED, patient bradycardic with HR in the 40s-50s and hypotensive at 100/60. EKG NS with no ST elevation/deviations. CT head non-acute with chronic findings with multifocal old infarcts. CXR with no acute findings. Labs remarkable for macrocytic, hyperchromic anemia with hgb at 12.4, creat at 3.5 (unknown baseline, last reading on 08/27/23 1.95), and lactic acid at 2.1. Patient was given versed, phenytoin, and 500ml fluid bolus. - Vitals & Intake/Output Vital Signs: Vital Signs Temperature 96.7 F 09/11/23 15:18 Pulse Rate 66 09/11/23 15:18 Respiratory Rate 20 09/11/23 15:18 Blood Pressure 170/75 09/11/23 15:18 O2 Sat by Pulse Oximetry 100 09/11/23 13:21 Intake & Output: Intake & Output 09/09/23 09/10/23 09/11/23 09/12/23 11:59 11:59 11:59 11:59 Weight 99.1 kg 98.4 kg - Lab Result Diagrams: 09/11/23 10:56 09/11/23 10:56 Lab Results-Last 24 Hrs: Lab Results-Last 24 Hours 09/11/23 09/11/23 09/11/23 Range/Units 10:26 10:56 10:56 WBC 5.5 (4.23-9.07) x10^3/uL RBC 3.81 L (4.63-6.08) x10^6/uL Hgb 12.4 L (13.7-17.5) g/dL Hct 38.3 L (40.1-51.0) % MCV 100.5 H (79.0-92.2) fL MCH 32.5 H (25.7-32.2) pg MCHC 32.4 (32.3-36.5) g/dL RDW 12.3 (11.6-14.4) % Plt Count 184 (163-337) x10^3/uL MPV 10.4 (9.4-12.4) fL Gran % 52.9 (34.0-67.9) % Immature Gran % (Auto) 0.6 H (0.001-0.429) % Nucleat RBC Rel Count 0.0 (0.00-0.2) % Eos # (Auto) 0.30 (0.04-0.54) x10^3/uL Immature Gran # (Auto) 0.03 (0.001-0.031) x10^3u/L Absolute Lymphs (auto) 1.52 (1.32-3.57) x10^3/uL Absolute Monos (auto) 0.68 (0.30-0.82) x10^3/uL Absolute Nucleated RBC 0.00 (0.00-0.012) x10^3u/L Lymphocytes % 27.9 (21.8-53.1) % Monocytes % 12.5 H (5.3-12.2) % Eosinophils % 5.5 (0.8-7.0) % Basophils % 0.6 (0.2-1.2) % Absolute Granulocytes 2.89 (1.78-5.38) x10^3/uL Basophils # 0.03 (0.01-0.08) x10^3/uL Sodium Direct 143 (138-146) mmol/L Potassium 3.9 (3.5-4.9) mmol/L Chloride 109 (98-109) mmol/L Carbon Dioxide 23 L (24-29) mmol/L Venous BUN 63 H (8-26) mg/dL Creatinine 3.5 H (0.6-1.3) mg/dL Glucose 167 H (70-105) mg/dL POC Glucometer (74 to 106) mg/dL Lactic Acid 2.1 H (0.4-2.0) Ionized Calcium 1.24 (1.12-1.32) mmol/L Magnesium (1.6-2.3) mg/dL Creatine Kinase (55-170) U/L Urine Color (Yellow) Urine Appearance (Clear) Urine pH (4.6-8.0) Ur Specific [place] (1.005-1.030) Urine Protein (Negative) Urine Glucose (UA) (Negative) mg/dL Urine Ketones (Negative) Urine Blood (Negative) Urine Nitrite (Negative) Urine Bilirubin (Negative) Urine Urobilinogen (0.2) mg/dL Ur Leukocyte Esterase (Negative) U Hyaline Cast (Auto) (0-2) /LPF Urine Microscopic RBC (0-5) /HPF Urine Microscopic WBC (0-5) /HPF Ur Epithelial Cells (None Seen) /HPF Urine Bacteria (None Seen) /HPF Urine Culture Reflexed (NO) Phenytoin (10-20) ug/mL 09/11/23 09/11/23 09/11/23 Range/Units 10:56 10:56 15:39 WBC (4.23-9.07) x10^3/uL RBC (4.63-6.08) x10^6/uL Hgb (13.7-17.5) g/dL Hct (40.1-51.0) % MCV (79.0-92.2) fL MCH (25.7-32.2) pg MCHC (32.3-36.5) g/dL RDW (11.6-14.4) % Plt Count (163-337) x10^3/uL MPV (9.4-12.4) fL Gran % (34.0-67.9) % Immature Gran % (Auto) (0.001-0.429) % Nucleat RBC Rel Count (0.00-0.2) % Eos # (Auto) (0.04-0.54) x10^3/uL Immature Gran # (Auto) (0.001-0.031) x10^3u/L Absolute Lymphs (auto) (1.32-3.57) x10^3/uL Absolute Monos (auto) (0.30-0.82) x10^3/uL Absolute Nucleated RBC (0.00-0.012) x10^3u/L Lymphocytes % (21.8-53.1) % Monocytes % (5.3-12.2) % Eosinophils % (0.8-7.0) % Basophils % (0.2-1.2) % Absolute Granulocytes (1.78-5.38) x10^3/uL Basophils # (0.01-0.08) x10^3/uL Sodium Direct (138-146) mmol/L Potassium (3.5-4.9) mmol/L Chloride (98-109) mmol/L Carbon Dioxide (24-29) mmol/L Venous BUN (8-26) mg/dL Creatinine (0.6-1.3) mg/dL Glucose (70-105) mg/dL POC Glucometer (74 to 106) mg/dL Lactic Acid (0.4-2.0) Ionized Calcium (1.12-1.32) mmol/L Magnesium 2.0 (1.6-2.3) mg/dL Creatine Kinase 553 H (55-170) U/L Urine Color Yellow (Yellow) Urine Appearance Clear (Clear) Urine pH 5.5 (4.6-8.0) Ur Specific [place] 1.020 (1.005-1.030) Urine Protein 300 A (Negative) Urine Glucose (UA) Negative (Negative) mg/dL Urine Ketones Trace A (Negative) Urine Blood Trace (Negative) Urine Nitrite Negative (Negative) Urine Bilirubin Negative (Negative) Urine Urobilinogen 1.0 A (0.2) mg/dL Ur Leukocyte Esterase Trace A (Negative) U Hyaline Cast (Auto) 11-20 (0-2) /LPF Urine Microscopic RBC 0-2 (0-5) /HPF Urine Microscopic WBC 3-5 (0-5) /HPF Ur Epithelial Cells Few (None Seen) /HPF Urine Bacteria None Seen (None Seen) /HPF Urine Culture Reflexed NO (NO) Phenytoin (10-20) ug/mL 09/11/23 Range/Units 16:19 WBC (4.23-9.07) x10^3/uL RBC (4.63-6.08) x10^6/uL Hgb (13.7-17.5) g/dL Hct (40.1-51.0) % MCV (79.0-92.2) fL MCH (25.7-32.2) pg MCHC (32.3-36.5) g/dL RDW (11.6-14.4) % Plt Count (163-337) x10^3/uL MPV (9.4-12.4) fL Gran % (34.0-67.9) % Immature Gran % (Auto) (0.001-0.429) % Nucleat RBC Rel Count (0.00-0.2) % Eos # (Auto) (0.04-0.54) x10^3/uL Immature Gran # (Auto) (0.001-0.031) x10^3u/L Absolute Lymphs (auto) (1.32-3.57) x10^3/uL Absolute Monos (auto) (0.30-0.82) x10^3/uL Absolute Nucleated RBC (0.00-0.012) x10^3u/L Lymphocytes % (21.8-53.1) % Monocytes % (5.3-12.2) % Eosinophils % (0.8-7.0) % Basophils % (0.2-1.2) % Absolute Granulocytes (1.78-5.38) x10^3/uL Basophils # (0.01-0.08) x10^3/uL Sodium Direct (138-146) mmol/L Potassium (3.5-4.9) mmol/L Chloride (98-109) mmol/L Carbon Dioxide (24-29) mmol/L Venous BUN (8-26) mg/dL Creatinine (0.6-1.3) mg/dL Glucose (70-105) mg/dL POC Glucometer 212 H (74 to 106) mg/dL Lactic Acid (0.4-2.0) Ionized Calcium (1.12-1.32) mmol/L Magnesium (1.6-2.3) mg/dL Creatine Kinase (55-170) U/L Urine Color (Yellow) Urine Appearance (Clear) Urine pH (4.6-8.0) Ur Specific [place] (1.005-1.030) Urine Protein (Negative) Urine Glucose (UA) (Negative) mg/dL Urine Ketones (Negative) Urine Blood (Negative) Urine Nitrite (Negative) Urine Bilirubin (Negative) Urine Urobilinogen (0.2) mg/dL Ur Leukocyte Esterase (Negative) U Hyaline Cast (Auto) (0-2) /LPF Urine Microscopic RBC (0-5) /HPF Urine Microscopic WBC (0-5) /HPF Ur Epithelial Cells (None Seen) /HPF Urine Bacteria (None Seen) /HPF Urine Culture Reflexed (NO) Phenytoin (10-20) ug/mL - Radiology Exams Ordered Rad Exams-Entire Visit: Radiology Procedures Category Date Time Status CHEST 1 VIEW (PORTABLE) Stat Exams 09/11/23 10:31 Completed HEAD WITHOUT CONTRAST [CT] Stat Exams 09/11/23 10:33 Completed - Procedures and Test Procedures and Tests throughout Hospitalization: Therapy Orders & Screens 09/11/23 14:22 Oxygen Nasal Cannula 2 lpm Comment: Respiratory Therapy Consult ONCE Comment: Reason For Exam: 09/11/23 14:44 EKG REPEAT IN AM Comment: Diagnosis: Recurrent seizures - Discharge Disposition: Home, Self-Care Condition: Fair Prescriptions: Continue Risperidone 1 mg [Risperdal 1 MG] 1 mg PO BID Phenytoin Sod Extended 100 mg* [Dilantin 100 MG] 100 mg PO BID Pantoprazole Sodium 40 mg PO DAILY Finasteride 5 mg [Proscar 5 MG] 5 mg PO DAILY Clopidogrel Bisulfate [PLAVIX Tablet] 75 mg PO DAILY Terazosin HCl 5 mg PO HS Isosorbide Mononitrate 30 mg [Imdur 30 MG] 30 mg PO BID Donepezil HCl [Aricept] 5 mg PO BID Gabapentin [Neurontin] 600 mg PO BID gemfibroziL [Gemfibrozil] 600 mg PO BID Melatonin/Pyridoxine [Melatonin 5 mg Tablet] 10 mg PO HS Insulin Glargine [Lantus Insulin] 20 unit SQ HS Ferrous Sulfate 325 mg [Feosol 325 mg] 325 mg PO DAILY Cyanocobalamin 100 Mcg [Vitamin B-12 100 Mcg] 1,000 mcg IM DIRECTIONS UNKNOWN Cholecalciferol (Vitamin D3) [Vitamin D] 400 unit PO DAILY Insulin Lispro [Humalog] See Protocol SQ [facility] Follow up with: KARTIK LADD DO [Primary Care Provider] -
[2023-09-11] MEDS: Dilantin 100 MG PO SCH (23:18)
[2023-09-11] MEDS: Lantus Insulin SQ SCH (23:21)
[2023-09-11] MEDS: DILANTIN IV 250 MG/5 ML IV SCH (23:30)
[2023-09-11] MEDS: NON-FORMULARY ITEM (Donepezil Hcl [Aricept] 5 MG Tablet) PO SCH (23:43)
[2023-09-11] MEDS: NON-FORMULARY ITEM (Gabapentin [Neurontin] 600 MG Tablet) PO SCH (23:48)
[2023-09-11] MEDS: NON-FORMULARY ITEM (Terazosin Hcl [Terazosin Hcl] 5 MG Capsule) PO SCH (23:49)
[2023-09-11] MEDS: Risperdal 1 MG PO SCH (23:50)
[2023-09-11] MEDS: LOPID PO SCH (23:50)
[2023-09-12] MEDS: Imdur 30 MG PO SCH (01:09)
[2023-09-12 04:47] LABS: Absolute Neutrophil Ct (ANC) 2.43 x10^3/uL (1.78-5.38); BASOPHIL % 0.6 % (0.2-1.2); Basophil (Absolute #) 0.03 x10^3/uL (0.01-0.08); Eosinophil % 9.3 % (0.8-7.0); Eosinophil (Absolute #) 0.47 x10^3/uL (0.04-0.54); Hematocrit 38.4 % (40.1-51.0); Hemoglobin 12.3 g/dL (13.7-17.5); IMMATURE GRAN # 0.01 x10^3u/L (0.001-0.031); IMMATURE GRAN % 0.2 % (0.001-0.429); Lymphocyte (Absolute #) 1.56 x10^3/uL (1.32-3.57); Lymphocytes % 30.7 % (21.8-53.1); Mean Cell Volume 101.3 fL (79.0-92.2); Mean Corpuscular Hemoglobin 32.5 pg (25.7-32.2); Mean Platelet Volume 10.8 fL (9.4-12.4); Monocyte (Absolute #) 0.58 x10^3/uL (0.30-0.82); Monocytes % 11.4 % (5.3-12.2); Neutrophil % 47.8 % (34.0-67.9); Platelet Count 177 x10^3/uL (163-337); Red Blood Count 3.79 x10^6/uL (4.63-6.08); Red Cell Distribution Width 12.3 % (11.6-14.4); White Blood Count 5.1 x10^3/uL (4.23-9.07)
[2023-09-12 05:00] LABS: ALBUMIN 3.7 g/dL (3.5-5.0); ANION GAP 11.5 MEQ/L (5-15); BILIRUBIN,TOTAL 0.5 mg/dL (0.2-1.3); Calcium 9.7 mg/dL (8.4-10.2); Creatinine 1 2.51 mg/dL (0.66-1.25); EST GLOMERULAR FILTRATION RATE 23.8 ML/MIN; MAGNESIUM 1.9 mg/dL (1.6-2.3); Potassium 3.9 mmol/L (3.5-5.1); Total Protein 6.9 g/dL (6.3-8.2)
[2023-09-12 06:49] VITALS: BP 132/60; PULSE 66; RESP 18; TEMP 97.6; O2SAT 95
--- NOTE | 2023-09-12 07:35 | PCM.DS ---
Discharge Summary Date of Admission: 09/11/23 14:04 Date of Discharge: 09/12/23 Admitting Physician: GARRETT JONES MD Consults: Consults on Case 09/11/23 14:44 Consult Neurology ROUTINE 09/11/23 15:10 Consult Nephrology ROUTINE Primary Care Provider: KARTIK LADD DO Allergies Allergies No Known Drug Allergies Allergy (Verified 09/11/23 17:09) Hospital Summary - Hospital Course Hospital Course: is a 88 year old malepmhx of dementia, seizures, stroke, HTN, DM, HTN, CKD, BPH, and HLD who presented to ED via EMS from the [facility] after having multiple witnessed seizures. Recent ER visit 08/27/23 for multiple seizures after not having a seizure for two years. Patient was transferred at that time to [facility]. ER documentation reviewed, family was not wishing to transfer patient due to multiple admissions to [facility]. Spoke with daughter Jennifer to obtain history as patient became belligerent once on the med surg floor and unable to provide. Per daughter patient has been having multiple seizures and falls at the nursing facility resulting in multiple hospitalizations at both [facility] and [facility] over the past several weeks. Patient has a baseline of dementia but normally does not have behavioral issues. Staff unable to obtain IV access or provide medical treatment without restraining patient. Discussed lab findings and need for multi-specialty consults as well as one-on-one sitter which is not available at [facility]. Family is now agreeable for transfer - preferably [facility] if able. In ED, patient bradycardic with HR in the 40s-50s and hypotensive at 100/60. EKG NS with no ST elevation/deviations. CT head non-acute with chronic findings with multifocal old infarcts. CXR with no acute findings. Labs remarkable for macrocytic, hyperchromic anemia with hgb at 12.4, creat at 3.5 (unknown baseline, last reading on 08/27/23 1.95), and lactic acid at 2.1. Patient was given versed, phenytoin, and 500ml fluid bolus. Discharge Note Latest Assessment & Plan (1) Acute on chronic renal failure Current Visit: Yes Status: Acute Assessment & Plan: -Creat at 3.5 (unknown baseline, last reading on 08/27/23 1.95) -Renal dose medications -void NSAIDs/MARILY/ARB/diuretics -Gentle hydration -Monitor renal lytes daily -Daily weights/assess for fluid overload closely -Strict I&O Code(s): N17.9 - ACUTE KIDNEY FAILURE, UNSPECIFIED; N18.9 - CHRONIC KIDNEY DISEASE, UNSPECIFIED (2) Recurrent seizures Current Visit: Yes Status: Acute Assessment & Plan: -History of epilepsy - on phenytoin -check drug level on initial blood drawn -CT head non-acute with chronic findings with multifocal old infarcts -EKG NS- No ST elevation/deviation -LA elevated, trend -Check CK/Mg -Received phenytoin/versed in ED with improvement - continue home meds -Seizure precautions -Ativan PRN for seizure activity -Tele -Supplemental oxygen with spo2 goal >92% -Neuro checks -Gentle hydration Code(s): G40.909 - EPILEPSY, UNSP, NOT INTRACTABLE, WITHOUT STATUS EPILEPTICUS (3) Type 2 diabetes mellitus Current Visit: Yes Status: Acute Assessment & Plan: -accucheck -SSI/glargine -a1c (4) Dementia Current Visit: Yes Status: Acute Assessment & Plan: -Continue home med -aricept Code(s): F03.90 - UNSP DEMENTIA, UNSP SEVERITY, WITHOUT BEH/PSYCH/MOOD/ANX (5) HTN (hypertension) Current Visit: Yes Status: Acute Assessment & Plan: -stable continue home meds Code(s): I10 - ESSENTIAL (PRIMARY) HYPERTENSION (6) BPH (benign prostatic hyperplasia) Current Visit: Yes Status: Acute Assessment & Plan: -Continue proscar Code(s): N40.0 - BENIGN PROSTATIC HYPERPLASIA WITHOUT LOWER URINRY TRACT SYMP (7) Bradycardia Current Visit: Yes Status: Acute Assessment & Plan: -secondary to versed, improved I spent 35 minutes [id number] with the patient on the day of discharge performing discharge exam, discussing hospital stay and discharge instructions with patient and caregivers, preparation of discharge records, prescriptions & referral forms and addressing any questions/concerns the patient had as documented above. - Vitals & Intake/Output Vital Signs: Vital Signs Temperature 97.6 F 09/12/23 06:48 Pulse Rate 66 09/12/23 06:48 Respiratory Rate 18 09/12/23 06:48 Blood Pressure 132/60 09/12/23 06:48 O2 Sat by Pulse Oximetry 95 09/12/23 06:48 Intake & Output: Intake & Output 09/09/23 09/10/23 09/11/23 09/12/23 11:59 11:59 11:59 11:59 Intake Total 1509 Output Total 560 Balance 949 Weight 99.1 kg 98.4 kg - Lab Result Diagrams: 09/12/23 04:20 09/12/23 04:20 Lab Results-Last 24 Hrs: Lab Results-Last 24 Hours 09/11/23 09/11/23 09/11/23 Range/Units 10:26 10:56 10:56 WBC 5.5 (4.23-9.07) x10^3/uL RBC 3.81 L (4.63-6.08) x10^6/uL Hgb 12.4 L (13.7-17.5) g/dL Hct 38.3 L (40.1-51.0) % MCV 100.5 H (79.0-92.2) fL MCH 32.5 H (25.7-32.2) pg MCHC 32.4 (32.3-36.5) g/dL RDW 12.3 (11.6-14.4) % Plt Count 184 (163-337) x10^3/uL MPV 10.4 (9.4-12.4) fL Gran % 52.9 (34.0-67.9) % Immature Gran % (Auto) 0.6 H (0.001-0.429) % Nucleat RBC Rel Count 0.0 (0.00-0.2) % Eos # (Auto) 0.30 (0.04-0.54) x10^3/uL Immature Gran # (Auto) 0.03 (0.001-0.031) x10^3u/L Absolute Lymphs (auto) 1.52 (1.32-3.57) x10^3/uL Absolute Monos (auto) 0.68 (0.30-0.82) x10^3/uL Absolute Nucleated RBC 0.00 (0.00-0.012) x10^3u/L Lymphocytes % 27.9 (21.8-53.1) % Monocytes % 12.5 H (5.3-12.2) % Eosinophils % 5.5 (0.8-7.0) % Basophils % 0.6 (0.2-1.2) % Absolute Granulocytes 2.89 (1.78-5.38) x10^3/uL Basophils # 0.03 (0.01-0.08) x10^3/uL Sodium (135-145) mmol/L Sodium Direct 143 (138-146) mmol/L Potassium 3.9 (3.5-4.9) mmol/L Chloride 109 (98-109) mmol/L Carbon Dioxide 23 L (24-29) mmol/L Anion Gap (5-15) MEQ/L BUN (9-20) mg/dL Venous BUN 63 H (8-26) mg/dL Creatinine 3.5 H (0.6-1.3) mg/dL Estimated GFR ML/MIN Glucose 167 H (70-105) mg/dL POC Glucometer (74 to 106) mg/dL Hemoglobin A1c (4.5-6.0) % Lactic Acid 2.1 H (0.4-2.0) Calcium (8.4-10.2) mg/dL Ionized Calcium 1.24 (1.12-1.32) mmol/L Magnesium (1.6-2.3) mg/dL Total Bilirubin (0.2-1.3) mg/dL AST (17-59) U/L ALT (0-50) U/L Alkaline Phosphatase (38-126) U/L Creatine Kinase (55-170) U/L Serum Total Protein (6.3-8.2) g/dL Albumin (3.5-5.0) g/dL Urine Color (Yellow) Urine Appearance (Clear) Urine pH (4.6-8.0) Ur Specific [place] (1.005-1.030) Urine Protein (Negative) Urine Glucose (UA) (Negative) mg/dL Urine Ketones (Negative) Urine Blood (Negative) Urine Nitrite (Negative) Urine Bilirubin (Negative) Urine Urobilinogen (0.2) mg/dL Ur Leukocyte Esterase (Negative) U Hyaline Cast (Auto) (0-2) /LPF Urine Microscopic RBC (0-5) /HPF Urine Microscopic WBC (0-5) /HPF Ur Epithelial Cells (None Seen) /HPF Urine Bacteria (None Seen) /HPF Urine Culture Reflexed (NO) Phenytoin (10-20) ug/mL 09/11/23 09/11/23 09/11/23 Range/Units 10:56 10:56 10:56 WBC (4.23-9.07) x10^3/uL RBC (4.63-6.08) x10^6/uL Hgb (13.7-17.5) g/dL Hct (40.1-51.0) % MCV (79.0-92.2) fL MCH (25.7-32.2) pg MCHC (32.3-36.5) g/dL RDW (11.6-14.4) % Plt Count (163-337) x10^3/uL MPV (9.4-12.4) fL Gran % (34.0-67.9) % Immature Gran % (Auto) (0.001-0.429) % Nucleat RBC Rel Count (0.00-0.2) % Eos # (Auto) (0.04-0.54) x10^3/uL Immature Gran # (Auto) (0.001-0.031) x10^3u/L Absolute Lymphs (auto) (1.32-3.57) x10^3/uL Absolute Monos (auto) (0.30-0.82) x10^3/uL Absolute Nucleated RBC (0.00-0.012) x10^3u/L Lymphocytes % (21.8-53.1) % Monocytes % (5.3-12.2) % Eosinophils % (0.8-7.0) % Basophils % (0.2-1.2) % Absolute Granulocytes (1.78-5.38) x10^3/uL Basophils # (0.01-0.08) x10^3/uL Sodium (135-145) mmol/L Sodium Direct (138-146) mmol/L Potassium (3.5-4.9) mmol/L Chloride (98-109) mmol/L Carbon Dioxide (24-29) mmol/L Anion Gap (5-15) MEQ/L BUN (9-20) mg/dL Venous BUN (8-26) mg/dL Creatinine (0.6-1.3) mg/dL Estimated GFR ML/MIN Glucose (70-105) mg/dL POC Glucometer (74 to 106) mg/dL Hemoglobin A1c 5.76 (4.5-6.0) % Lactic Acid (0.4-2.0) Calcium (8.4-10.2) mg/dL Ionized Calcium (1.12-1.32) mmol/L Magnesium 2.0 (1.6-2.3) mg/dL Total Bilirubin (0.2-1.3) mg/dL AST (17-59) U/L ALT (0-50) U/L Alkaline Phosphatase (38-126) U/L Creatine Kinase 553 H (55-170) U/L Serum Total Protein (6.3-8.2) g/dL Albumin (3.5-5.0) g/dL Urine Color (Yellow) Urine Appearance (Clear) Urine pH (4.6-8.0) Ur Specific [place] (1.005-1.030) Urine Protein (Negative) Urine Glucose (UA) (Negative) mg/dL Urine Ketones (Negative) Urine Blood (Negative) Urine Nitrite (Negative) Urine Bilirubin (Negative) Urine Urobilinogen (0.2) mg/dL Ur Leukocyte Esterase (Negative) U Hyaline Cast (Auto) (0-2) /LPF Urine Microscopic RBC (0-5) /HPF Urine Microscopic WBC (0-5) /HPF Ur Epithelial Cells (None Seen) /HPF Urine Bacteria (None Seen) /HPF Urine Culture Reflexed (NO) Phenytoin (10-20) ug/mL 09/11/23 09/11/23 09/11/23 Range/Units 15:39 16:19 22:47 WBC (4.23-9.07) x10^3/uL RBC (4.63-6.08) x10^6/uL Hgb (13.7-17.5) g/dL Hct (40.1-51.0) % MCV (79.0-92.2) fL MCH (25.7-32.2) pg MCHC (32.3-36.5) g/dL RDW (11.6-14.4) % Plt Count (163-337) x10^3/uL MPV (9.4-12.4) fL Gran % (34.0-67.9) % Immature Gran % (Auto) (0.001-0.429) % Nucleat RBC Rel Count (0.00-0.2) % Eos # (Auto) (0.04-0.54) x10^3/uL Immature Gran # (Auto) (0.001-0.031) x10^3u/L Absolute Lymphs (auto) (1.32-3.57) x10^3/uL Absolute Monos (auto) (0.30-0.82) x10^3/uL Absolute Nucleated RBC (0.00-0.012) x10^3u/L Lymphocytes % (21.8-53.1) % Monocytes % (5.3-12.2) % Eosinophils % (0.8-7.0) % Basophils % (0.2-1.2) % Absolute Granulocytes (1.78-5.38) x10^3/uL Basophils # (0.01-0.08) x10^3/uL Sodium (135-145) mmol/L Sodium Direct (138-146) mmol/L Potassium (3.5-4.9) mmol/L Chloride (98-109) mmol/L Carbon Dioxide (24-29) mmol/L Anion Gap (5-15) MEQ/L BUN (9-20) mg/dL Venous BUN (8-26) mg/dL Creatinine (0.6-1.3) mg/dL Estimated GFR ML/MIN Glucose (70-105) mg/dL POC Glucometer 212 H 146 H (74 to 106) mg/dL Hemoglobin A1c (4.5-6.0) % Lactic Acid (0.4-2.0) Calcium (8.4-10.2) mg/dL Ionized Calcium (1.12-1.32) mmol/L Magnesium (1.6-2.3) mg/dL Total Bilirubin (0.2-1.3) mg/dL AST (17-59) U/L ALT (0-50) U/L Alkaline Phosphatase (38-126) U/L Creatine Kinase (55-170) U/L Serum Total Protein (6.3-8.2) g/dL Albumin (3.5-5.0) g/dL Urine Color Yellow (Yellow) Urine Appearance Clear (Clear) Urine pH 5.5 (4.6-8.0) Ur Specific [place] 1.020 (1.005-1.030) Urine Protein 300 A (Negative) Urine Glucose (UA) Negative (Negative) mg/dL Urine Ketones Trace A (Negative) Urine Blood Trace (Negative) Urine Nitrite Negative (Negative) Urine Bilirubin Negative (Negative) Urine Urobilinogen 1.0 A (0.2) mg/dL Ur Leukocyte Esterase Trace A (Negative) U Hyaline Cast (Auto) 11-20 (0-2) /LPF Urine Microscopic RBC 0-2 (0-5) /HPF Urine Microscopic WBC 3-5 (0-5) /HPF Ur Epithelial Cells Few (None Seen) /HPF Urine Bacteria None Seen (None Seen) /HPF Urine Culture Reflexed NO (NO) Phenytoin (10-20) ug/mL 09/12/23 09/12/23 09/12/23 Range/Units 04:20 04:20 06:35 WBC 5.1 (4.23-9.07) x10^3/uL RBC 3.79 L (4.63-6.08) x10^6/uL Hgb 12.3 L (13.7-17.5) g/dL Hct 38.4 L (40.1-51.0) % MCV 101.3 H (79.0-92.2) fL MCH 32.5 H (25.7-32.2) pg MCHC 32.0 L (32.3-36.5) g/dL RDW 12.3 (11.6-14.4) % Plt Count 177 (163-337) x10^3/uL MPV 10.8 (9.4-12.4) fL Gran % 47.8 (34.0-67.9) % Immature Gran % (Auto) 0.2 (0.001-0.429) % Nucleat RBC Rel Count 0.0 (0.00-0.2) % Eos # (Auto) 0.47 (0.04-0.54) x10^3/uL Immature Gran # (Auto) 0.01 (0.001-0.031) x10^3u/L Absolute Lymphs (auto) 1.56 (1.32-3.57) x10^3/uL Absolute Monos (auto) 0.58 (0.30-0.82) x10^3/uL Absolute Nucleated RBC 0.00 (0.00-0.012) x10^3u/L Lymphocytes % 30.7 (21.8-53.1) % Monocytes % 11.4 (5.3-12.2) % Eosinophils % 9.3 H (0.8-7.0) % Basophils % 0.6 (0.2-1.2) % Absolute Granulocytes 2.43 (1.78-5.38) x10^3/uL Basophils # 0.03 (0.01-0.08) x10^3/uL Sodium 144 (135-145) mmol/L Sodium Direct (138-146) mmol/L Potassium 3.9 (3.5-4.9) mmol/L Chloride 114 H (98-109) mmol/L Carbon Dioxide 22 (24-29) mmol/L Anion Gap 11.5 (5-15) MEQ/L BUN 49 H (9-20) mg/dL Venous BUN (8-26) mg/dL Creatinine 2.51 H (0.6-1.3) mg/dL Estimated GFR 23.8 ML/MIN Glucose 147 H (70-105) mg/dL POC Glucometer 135 H (74 to 106) mg/dL Hemoglobin A1c (4.5-6.0) % Lactic Acid (0.4-2.0) Calcium 9.7 (8.4-10.2) mg/dL Ionized Calcium (1.12-1.32) mmol/L Magnesium 1.9 (1.6-2.3) mg/dL Total Bilirubin 0.50 (0.2-1.3) mg/dL AST 44 (17-59) U/L ALT 33 (0-50) U/L Alkaline Phosphatase 196 H (38-126) U/L Creatine Kinase (55-170) U/L Serum Total Protein 6.9 (6.3-8.2) g/dL Albumin 3.7 (3.5-5.0) g/dL Urine Color (Yellow) Urine Appearance (Clear) Urine pH (4.6-8.0) Ur Specific [place] (1.005-1.030) Urine Protein (Negative) Urine Glucose (UA) (Negative) mg/dL Urine Ketones (Negative) Urine Blood (Negative) Urine Nitrite (Negative) Urine Bilirubin (Negative) Urine Urobilinogen (0.2) mg/dL Ur Leukocyte Esterase (Negative) U Hyaline Cast (Auto) (0-2) /LPF Urine Microscopic RBC (0-5) /HPF Urine Microscopic WBC (0-5) /HPF Ur Epithelial Cells (None Seen) /HPF Urine Bacteria (None Seen) /HPF Urine Culture Reflexed (NO) Phenytoin (10-20) ug/mL Micro Results-Entire Visit: Accuchecks Date 09/12/23 Date 09/11/23 Time 06:49 Time 22:30 - Radiology Exams Ordered Rad Exams-Entire Visit: Radiology Procedures Category Date Time Status CHEST 1 VIEW (PORTABLE) Stat Exams 09/11/23 10:31 Completed HEAD WITHOUT CONTRAST [CT] Stat Exams 09/11/23 10:33 Completed - Procedures and Test Procedures and Tests throughout Hospitalization: Therapy Orders & Screens 09/11/23 14:22 Oxygen Nasal Cannula 2 lpm Comment: Respiratory Therapy Consult ONCE Comment: Reason For Exam: 09/11/23 14:44 EKG REPEAT IN AM Comment: Diagnosis: Recurrent seizures Discharge Exam General Appearance: mild distress Neurologic Exam: alert, disoriented, confusion, agitation, uncooperative Eye Exam: PERRL Ears, Nose, Throat Exam: normal ENT inspection Neck Exam: normal inspection Respiratory Exam: normal breath sounds, lungs clear Cardiovascular Exam: regular rate/rhythm, normal heart sounds Gastrointestinal/Abdomen Exam: soft, normal bowel sounds Male Genitalia Exam: deferred Rectal Exam: deferred Back Exam: normal inspection Extremity Exam: normal inspection Skin Exam: normal color Final Diagnosis/Problem List - Final Discharge Diagnosis/Problem (1) Acute on chronic renal failure Current Visit: Yes Status: Acute Code(s): N17.9 - ACUTE KIDNEY FAILURE, UNSPECIFIED; N18.9 - CHRONIC KIDNEY DISEASE, UNSPECIFIED (2) Recurrent seizures Current Visit: Yes Status: Acute Code(s): G40.909 - EPILEPSY, UNSP, NOT INTRACTABLE, WITHOUT STATUS EPILEPTICUS (3) Type 2 diabetes mellitus Current Visit: Yes Status: Acute (4) Dementia Current Visit: Yes Status: Acute Code(s): F03.90 - UNSP DEMENTIA, UNSP SEVERITY, WITHOUT BEH/PSYCH/MOOD/ANX (5) HTN (hypertension) Current Visit: Yes Status: Acute Code(s): I10 - ESSENTIAL (PRIMARY) HYPERTENSION (6) BPH (benign prostatic hyperplasia) Current Visit: Yes Status: Acute Code(s): N40.0 - BENIGN PROSTATIC HYPERPLASIA WITHOUT LOWER URINRY TRACT SYMP (7) Bradycardia Current Visit: Yes Status: Acute Code(s): R00.1 - BRADYCARDIA, UNSPECIFIED - Discharge Disposition: DC TO [facility] Condition: Fair Prescriptions: Continue Risperidone 1 mg [Risperdal 1 MG] 1 mg PO BID Phenytoin Sod Extended 100 mg* [Dilantin 100 MG] 100 mg PO BID Pantoprazole Sodium 40 mg PO DAILY Finasteride 5 mg [Proscar 5 MG] 5 mg PO DAILY Clopidogrel Bisulfate [PLAVIX Tablet] 75 mg PO DAILY Terazosin HCl 5 mg PO HS Isosorbide Mononitrate 30 mg [Imdur 30 MG] 30 mg PO BID Donepezil HCl [Aricept] 5 mg PO BID Gabapentin [Neurontin] 600 mg PO BID gemfibroziL [Gemfibrozil] 600 mg PO BID Melatonin/Pyridoxine [Melatonin 5 mg Tablet] 10 mg PO HS Insulin Glargine [Lantus Insulin] 20 unit SQ HS Ferrous Sulfate 325 mg [Feosol 325 mg] 325 mg PO DAILY Cyanocobalamin 100 Mcg [Vitamin B-12 100 Mcg] 1,000 mcg IM UD Cholecalciferol (Vitamin D3) [Vitamin D] 400 unit PO DAILY Insulin Lispro [Humalog] See Protocol SQ ACHS Follow up with: KARTIK LADD DO [Primary Care Provider] -
[2023-09-12] MEDS: PHARMACY DOSING REQUEST MC ONE (07:53)
[2023-09-12] MEDS: Ativan 2 MG/1 ML VIAL IV PRN (08:52)
[2023-09-12] MEDS ORDERED: NEURONTIN PO SCH (10:00)
[2023-09-12] MEDS ORDERED: VITAMIN D PO SCH (10:00)
[2023-09-12] MEDS ORDERED: Aricept 10 MG PO SCH (10:00)
[2023-09-12] MEDS ORDERED: PLAVIX Tablet PO SCH (10:00)
[2023-09-12] MEDS ORDERED: Proscar 5 MG PO SCH (10:00)
[2023-09-12] MEDS ORDERED: Protonix 40MG Tablet PO SCH (10:00)
[2023-09-12] MEDS ORDERED: FEOSOL 325 MG PO SCH (10:00)
[2023-09-12] MEDS ORDERED: HYTRIN 1 MG PO SCH (22:00)
== END 2023-09-12 09:05 | disposition home or self-care (01) ==
LOC: ED 10:13 → MED SURG 14:04
PROVIDERS: ADMIT Internal Medicine; ATTEND Internal Medicine
DX: I12.9 Hypertensive chronic kidney disease with stage 1 through stage 4 chronic kidney disease, or unspecified chronic kidney disease (principal); E11.22 Type 2 diabetes mellitus with diabetic chronic kidney disease; N18.9 Chronic kidney disease, unspecified; N17.9 Acute kidney failure, unspecified; G40.909 Epilepsy, unspecified, not intractable, without status epilepticus; F03.90 Unspecified dementia, unspecified severity, without behavioral disturbance, psychotic disturbance, mood disturbance, and anxiety; N40.0 Benign prostatic hyperplasia without lower urinary tract symptoms; E78.5 Hyperlipidemia, unspecified; R00.1 Bradycardia, unspecified; Z79.01 Long term (current) use of anticoagulants; Z79.899 Other long term (current) drug therapy; Z86.73 Personal history of transient ischemic attack (TIA), and cerebral infarction without residual deficits
CPT/HCPCS: 36000; 36415; 70450; 71045; 80047; 80053; 80185; 81001; 82550; 82947; 83036; 83605; 83735; 85025; 93005; 93041; 93268; 94760; 96360; 96365; 99285; G0378; J1165; J2060; J3486